=== PATIENT | male | born 1950 | race Caucasian/White ===

== ENCOUNTER 2017-12-17 05:33 | Outpatient (CLI) | payer MEDICARE ==
[~2017-12-17] VITALS: Ht 167.6 cm; Wt 53.1 kg
[2017-12-17] MEDS ORDERED: AMLO5TAB2 PO (10:09)
[2017-12-17] MEDS ORDERED: LOSA100T28 PO (10:09)
[2017-12-17] MEDS ORDERED: ASPI-586 PO (10:09)
[2017-12-18] MEDS ORDERED: DOCU-143 PO (13:11)
[2017-12-18] MEDS ORDERED: ACHD5005 PO (13:11)
== END 2017-12-17 10:38 ==
LOC: PREOP 05:33
PROVIDERS: ATTEND Surgery
DX: Z01.818 Encounter for other preprocedural examination (principal); K40.90 Unilateral inguinal hernia, without obstruction or gangrene, not specified as recurrent

== ENCOUNTER 2017-12-18 10:40 | Day surgery (SDC) | payer MEDICARE, OTHER ==
[~2017-12-18] VITALS: Ht 167.6 cm; Wt 53.1 kg
[~2017-12-18 10:40] MED LIST: AMLO5TAB2 PO; ASPI-586 PO; LOSA100T28 PO
[2017-12-18] MEDS ORDERED: CLINDAMYCIN 600 MG/50 ML IVPB 50 ML IV ONE ×3 (11:00→12:30)
[2017-12-18] MEDS ORDERED: CATHETER FLUSH 10 ML SYR IV PRN ×2 (11:00→12:30)
[2017-12-18] MEDS ORDERED: MIDAZOLAM 2 MG/2 ML (VERSED) VIAL ONE ×2 (11:20→12:14)
[2017-12-18 11:30] VITALS: BP 164/87
[2017-12-18] MEDS ORDERED: LIDOCAINE 1% INJ 20 ML (XYLOCAINE) VIAL ONE (12:04)
[2017-12-18] MEDS ORDERED: BUPIVACAINE 0.5% 30 ML (SENSORCAINE) VIAL ONE (12:05)
[2017-12-18] MEDS ORDERED: LIDOCAINE PF 2% 5 ML (XYLOCAINE) VIAL ONE (12:13)
[2017-12-18] MEDS ORDERED: LACTATED RINGERS 1,000 ML IV ONE (12:13)
[2017-12-18] MEDS ORDERED: ONDANSETRON 4 MG/2 ML (SDV) Z0FRAN ONE (12:13)
[2017-12-18] MEDS ORDERED: DEXAMETHASONE 10 MG/ML (DECADRON) 1 ML VIAL ONE (12:13)
[2017-12-18] MEDS ORDERED: SEVOFLURANE (ULTANE) 15 ML INHAL SOLN ONE ×2 (12:13→13:03)
[2017-12-18] MEDS ORDERED: proPOfol 200 MG/20 ML (DIPRIVAN) VIAL IV ONE (12:13)
[2017-12-18] MEDS ORDERED: fentaNYL INJECTION 100 MCG/2 ML AMP ONE (12:14)
--- NOTE | 2017-12-18 13:08 | Progress Note-Pre Operative ---
Pre-Operative Progress Note H&P Reviewed The H&P was reviewed, patient examined and no changes noted. Date Seen by Provider: Dec 18, 2017 Time Seen by Provider: 11:51 Date H&P Reviewed: Dec 18, 2017 Time H&P Reviewed: 11:51 Pre-Operative Diagnosis: left inguinal hernia YENI HUERTA DO Dec 18, 2017 13:08
--- NOTE | 2017-12-18 13:09 | Progress Note-Post Operative ---
Post-Operative Progess Note Surgeon (s)/Sulfuric Acid Plant Operator (s) Surgeon YENI HUERTA DO Sulfuric Acid Plant Operator: Dr. Bond Pre-Operative Diagnosis left inguinal hernia Post-Operative Diagnosis same Procedure & Operative Findings Date of Procedure 12/18/17 Procedure Performed/Findings left inguinal hernia indirect and direct defect Anesthesia Type general Estimated Blood Loss Estimated blood loss (mL): min Specimens/Packing Specimens Removed hernia sac YENI HUERTA DO Dec 18, 2017 13:09
[2017-12-18] MEDS ORDERED: DOCU-143 PO (13:11)
[2017-12-18] MEDS ORDERED: ACHD5005 PO (13:11)
--- NOTE | 2017-12-18 13:14 | Discharge Inst-Simple/Standard ---
Discharge Inst-Standard Discharge Medications New, Converted or Re-Newed RX: RX on Chart Patient Instructions/Follow Up Plan of Care/Instructions/FU: 2-3 weeks Christofer Activity as Tolerated: No Discharge Diet: Regular Diet Other Inst to Patient Follow up Appt: Make appointment for 2-3 weeks. Instructions: No lifting greater than 10 pounds. No strenuous activity. May shower in 24 hours, no tub bath or soaking. Use incentive spirometer at home as directed. No Smoking Skin/Wound Care: You have special glue over incision it will fall off on its own. Symptoms to Report: Appetite Changes, Extremity Discoloration, Numbness/Tingling, Swelling Increased , Bleeding Excessive, Eyesight Changes, Pain Increased, Urine Color Change, Constipation(Persistent), Fever over 101 degree F, Pain/Pressure in chest, Urinating Difficulty, Cough Up/Vomit Blood, Heart Beat Irreg/Pounding, Pain/ Pressure in jaw, Vaginal Bleeding Increase, Cramps in feet or legs, Lightheadedness, Pain/Pressure in shoulder, Diarrhea(Persistent), Memory Changes Suddenly, Questions/Concerns, Weight gain consecutive days, Dizziness/ Fainting, Nausea/Vomiting, Shortness of Breath, Weight gain over 2 pounds If questions or concerns contact your physician Or seek help at emergency department. YENI HUERTA DO Dec 18, 2017 13:14
[2017-12-18] MEDS ORDERED: HYDROcodone/APAP 5 MG/325 MG (LORTAB) TAB PO PRN (13:15)
[2017-12-18] MEDS ORDERED: morphine INJ 10 MG/ML 1ML (SYR OR VIAL) IVP PRN (13:30)
[2017-12-18] MEDS ORDERED: ONDANSETRON 4 MG/2 ML (SDV) Z0FRAN IVP PRN (13:30)
--- NOTE | 2017-12-18 14:18 | Anesthesia-General Post-Op ---
General Patient Condition Mental Status/LOC: Same as Preop Cardiovascular: Satisfactory Nausea/Vomiting: Absent Respiratory: Satisfactory Pain: Controlled Complications: Absent Post Op Complications Complications None Follow Up Care/Instructions Patient Instructions None needed. Anesthesia/Patient Condition Patient Condition Patient is doing well, no complaints, stable vital signs, no apparent adverse anesthesia problems. No complications reported per nursing. D/C home per [facility] Criteria: Yes ANDREAS ARMIJO CRNA Dec 18, 2017 14:18
[2017-12-18 14:20] VITALS: BP 144/82
[2017-12-18 14:55] VITALS: BP 148/71
[2017-12-18] MEDS ORDERED: HYDROcodone/APAP 5 MG/325 MG (LORTAB) TAB ONE (15:17)
[2017-12-18 15:25] VITALS: BP 152/81
[2017-12-18] MEDS ORDERED: MIDAZOLAM 2 MG/2 ML (VERSED) VIAL IV ONE (15:45)
[2017-12-18] MEDS ORDERED: LACTATED RINGERS 1,000 ML IV PRN (15:45)
[2017-12-18 16:30] VITALS: BP 152/81
--- NOTE | 2017-12-18 19:45 | OPERATIVE REPORT ---
DATE OF SERVICE: 12/18/2017 PREOPERATIVE DIAGNOSIS: Left inguinal hernia. POSTOPERATIVE DIAGNOSIS: Direct and indirect left inguinal hernia. PROCEDURE: Left inguinal hernia repair. SURGEON: Yeni Beaulieu DO. DIGITAL COURT REPORTER: Dr. Bond, assisted in retraction, dissection and closure. ESTIMATED BLOOD LOSS: Minimal. COMPLICATIONS: None. INDICATIONS: The patient is a 67-year-old male who has hernia over the last couple of weeks increasing in pain and discomfort and noticing a bulge. He understands risks and benefits of procedure and wished to proceed with procedure. Consent was signed on the chart. DESCRIPTION OF PROCEDURE: The patient was taken to the operating suite, was prepped and draped in sterile fashion. Surgical pause was performed. Local anesthetic was infiltrated into the area. An incision was made in the left lower quadrant. Dissection was taken down to the external oblique which was then opened down to the external ring. The spermatic cord was then dissected around and a Pomona drain was placed around it. has small direct hernia along with an indirect hernia. The hernia sac was then dissected off of the spermatic cord, opened. There were no contents within it and then ligated with a 2-0 Vicryl. The floor defect was then closed using 2-0 Vicryl in a [id number] fashion. The Parietex ProGrip mesh was then cut to size and then secured to Juan Manuel's ligament with a 2-0 Vicryl. This was then placed around the spermatic cord and placed under the external oblique with adequate coverage. The wound was then irrigated with copious amounts of irrigation. The Pomona drain was removed. The external oblique was then closed using 3-0 Vicryl in a running subcuticular fashion. The subcutaneous tissues were then reapproximated using 3-0 Vicryl. Skin was then closed using 4-0 Vicryl in a running subcuticular fashion. The area was then washed and dried. SwiftSet was then placed over the incision. The patient tolerated the procedure well without any complications. He was taken to recovery room in stable condition. Job ID: [id number] DocumentID: [id number] Dictated Date: 12/18/2017 14:14:39 Hypoid Gear Generator Date: 12/18/2017 19:45:12 Dictated By: YENI BEAULIEU DO
== END 2017-12-18 16:30 | disposition home or self-care (01) ==
LOC: SDC 10:40
PROVIDERS: ATTEND Surgery
DX: K40.90 Unilateral inguinal hernia, without obstruction or gangrene, not specified as recurrent (principal); I10 Essential (primary) hypertension; F17.210 Nicotine dependence, cigarettes, uncomplicated; Z79.82 Long term (current) use of aspirin; Z79.899 Other long term (current) drug therapy
CPT/HCPCS: 87081; 94664

== ENCOUNTER → 2018-04-13 | Outpatient (CLI) | payer MEDICARE ==
[~2018-04-13] MED LIST changes: +ACHD5005 PO; +DOCU-143 PO
--- NOTE | 2018-04-13 15:16 | Diagnostic Imaging Report ---
INDICATION: Hip pain. Fall. COMPARISON: None. FINDINGS: Two views of the left hip are obtained. No acute fracture, malalignment or osseous destructive process is seen. Joint spaces preserved. Femoral head appears smooth and round. IMPRESSION: No acute abnormalities demonstrated. Dictated by: Dictated on workstation # [id number]
== END ==
LOC: RAD 14:04
PROVIDERS: ATTEND Family Medicine
DX: M25.552 Pain in left hip (principal); W10.8XXA Fall (on) (from) other stairs and steps, initial encounter
CPT/HCPCS: 73502

== ENCOUNTER → 2022-09-16 | Outpatient (CLI) | payer MEDICARE ==
[~2022-09-16] VITALS: Ht 167 cm; Wt 56.8 kg
[~2022-09-16] MED LIST changes: +AMLO-250 PO; -AMLO5TAB2 PO; -LOSA100T28 PO; +LOSA100T57 PO
== END ==
LOC: PREOP 15:48
PROVIDERS: ATTEND Urology
DX: Z01.818 Encounter for other preprocedural examination (principal); N42.9 Disorder of prostate, unspecified

== ENCOUNTER 2022-09-17 06:19 | Day surgery (SDC) | payer MEDICARE ==
[2022-09-17] VITALS (9 sets, daily range): BP systolic 93–142; BP diastolic 44–80
[~2022-09-17] VITALS: Ht 167 cm; Wt 56.8 kg
[2022-09-17] MEDS ORDERED: cefTRIAXone 1 GM PRE-MIX 50 ML IV ONE (06:45)
[2022-09-17] MEDS ORDERED: LACTATED RINGERS 1,000 ML IV PRN (07:00)
[2022-09-17] MEDS ORDERED: CATHETER FLUSH 10 ML SYR IVP PRN (07:15)
--- NOTE | 2022-09-17 07:16 | Progress Note-Pre Operative ---
Pre-Operative Progress Note Date of Available H&P: Sep 17, 2022 Date H&P Reviewed: Sep 17, 2022 Time H&P Reviewed: 07:15 Changes from last HP NONE Pre-Operative Diagnosis: ABNORMAL PROSTATE WITH ELEVATED PSA CHANTE NIELSON MD Sep 17, 2022 07:15
--- NOTE | 2022-09-17 07:40 | Progress Note-Post Operative ---
Post-Operative Progess Note Surgeon (s)/Tetryl Boiling Tub Operator (s) Surgeon CHANTE NIELSON MD Tetryl Boiling Tub Operator: NONE Pre-Operative Diagnosis ABNORMAL PROSTATE WITH ELEVATED PSA Post-Operative Diagnosis SAME Procedure & Operative Findings Date of Procedure 09/17/22 Procedure Performed/Findings TRANSRECTAL NEEDLE BIOPSY PROSTATE Anesthesia Type GENERAL Estimated Blood Loss Estimated blood loss (mL): NEGLIGIBLE Specimens/Packing Specimens Removed PROSTATE BIOPSIES RT AND LT Packing: NONE CHANTE NIELSON MD Sep 17, 2022 07:40
--- NOTE | 2022-09-17 07:45 | Discharge Inst-Urology ---
Discharge Inst-Urology Reconcile Patient Problems Problems Reviewed?: Yes Final Diagnosis POSSIBLE CA PROSTATE Patient Instructions/Follow Up Plan/Assessment/Instructions Please make appointment to been seen in office in 1 week Take the Levaquin pill he has at home tomorrow am Rest for 48 hours In 72 hours, if no bleeding, may resume ASA Increase oral fluids for 48 hours and then as needed. Diet as tolerated. If questions or concerns contact your physician Or seek help at emergency department. CHANTE NIELSON MD Sep 17, 2022 07:45
[2022-09-17] MEDS ORDERED: proPOfol 200 MG/20 ML (DIPRIVAN) VIAL IV ONE (08:20)
[2022-09-17] MEDS ORDERED: LIDOCAINE PF 2% 5 ML (XYLOCAINE) VIAL ONE (08:20)
[2022-09-17] MEDS ORDERED: fentaNYL INJ 100 MCG/2 ML AMP ONE (08:20)
[2022-09-17] MEDS ORDERED: MIDAZOLAM 2 MG/2 ML (VERSED) VIAL ONE (08:20)
[2022-09-17] MEDS ORDERED: SEVOFLURANE (ULTANE) 15 ML INHAL SOLN ONE (09:01)
--- NOTE | 2022-09-17 09:25 | Anesthesia-General Post-Op ---
General Patient Condition Mental Status/LOC: Same as Preop Cardiovascular: Satisfactory Nausea/Vomiting: Absent Respiratory: Satisfactory Pain: Controlled Complications: Absent Post Op Complications Complications None Follow Up Care/Instructions Patient Instructions None needed. Anesthesia/Patient Condition Patient Condition Patient is doing well, no complaints, stable vital signs, no apparent adverse anesthesia problems. No complications reported per nursing. THEODORE DUNBAR CRNA Sep 17, 2022 09:25
[2022-09-17] MEDS ORDERED: fentaNYL INJ 100 MCG/2 ML AMP IVP ONE (09:30)
[2022-09-17] MEDS ORDERED: ONDANSETRON 4 MG/2 ML (SDV) Z0FRAN IVP PRN (09:30)
--- NOTE | 2022-09-17 20:51 | OPERATIVE REPORT ---
DATE OF SERVICE: 09/17/2022 PREOPERATIVE DIAGNOSIS: Abnormal rectal exam prostate and elevated PSA, possible CA. POSTOPERATIVE DIAGNOSIS: Abnormal rectal exam prostate and elevated PSA, possible CA. OPERATION PERFORMED: Transrectal needle biopsies of the prostate. SURGEON: All Nielson MD ANESTHESIA: General. COMPLICATIONS: None. DESCRIPTION OF PROCEDURE: Under satisfactory general anesthesia with the patient in lithotomy position, genitalia were prepped and draped in the usual sterile fashion. Using the Bard biopsy gun, I obtained six biopsies of the prostate, three from the right side mostly from the hard areas as well as the left side. There was no bleeding. The patient tolerated the procedure and anesthesia well, and was sent to recovery room in stable condition. Job ID: [id number] DocumentID: [id number] Dictated Date: 09/17/2022 10:26:54 Incident Response Specialist Date: 09/17/2022 20:49:00 Dictated By: ALL NIELSON MD
== END 2022-09-17 10:50 | disposition home or self-care (01) ==
LOC: SDC 06:19
PROVIDERS: ATTEND Urology
DX: C61 Malignant neoplasm of prostate (principal); F17.210 Nicotine dependence, cigarettes, uncomplicated
CPT/HCPCS: 87081; 88305; 88344

== ENCOUNTER → 2022-09-23 | Outpatient (CLI) | payer MEDICARE ==
--- NOTE | 2022-09-23 19:46 | Diagnostic Imaging Report ---
PROCEDURE: CT abdomen and pelvis without contrast. TECHNIQUE: Multiple contiguous axial images were obtained through the abdomen and pelvis without the use of intravenous contrast. Auto Exposure Controls were utilized during the CT exam to meet ALARA standards for radiation dose reduction. INDICATION: 72-year-old male with prostate cancer and previous right inguinal hernia repair. COMPARISONS: None available at the time of dictation. FINDINGS: The lung bases show COPD with some emphysematous changes. Cardiac contour is normal. Coronary calcifications are seen. Liver shows multiple simple appearing cysts. There is an indeterminate low density cystic type lesion along the inferior margin of segment 6 of the right lobe of the liver. This measures approximately 1.5 cm. The remainder of the cysts in both the left and right lobes appear to be simple in origin. Gallbladder shows no evidence of radiopaque stones, sludge, wall thickening or pericholecystic fluid. The spleen is normal. The GE junction, stomach and duodenal sweep are unremarkable. The pancreas shows sharp margins. Adrenals are normal. The kidneys show some nonspecific minimal bilateral perinephric stranding, right more so than left. There is a 3.7 cm capsular cyst in the left kidney. There is no hydronephrosis or hydroureter. Both ureters are seen intermittently through their course and appear unremarkable. Lack of contrast and paucity of mesenteric fat does limit assessment. Filled bladder is unremarkable. Nonopacified loops of small bowel show some fluid-filled loops with no significant distention. Large bowel contains fecal material and gas. Sigmoid diverticulosis but no definite evidence of acute diverticulitis. There is no free air, free fluid or adenopathy. There is extensive nonaneurysmal calcifications extending to the iliac and femoral arteries. Bone windows show some age-appropriate degenerative changes of the lumbosacral spine. There is vacuum disc at L5-S1. There is some scalloping of the neuroforamen at S2 possibly sequela of a perineural cyst/Tarlov cyst. No lytic or blastic changes are seen. IMPRESSION: 1. Indeterminate low density/cystic lesion in the medial portion of segment 6 of the right lobe of the liver measuring approximately 1.5 cm. Correlation with a three-phase CT of the abdomen would be of further value. Additional more benign-appearing low-density lesions are most likely cysts. Once again, correlation with a postcontrast CT and/or ultrasound or MRI may be of further value. 2. Indeterminant capsular cyst of the left kidney measuring approximately 3.7 cm. 3. Minimal bilateral perinephric stranding, right greater than left. This may be physiologic however an element of mild pyelonephritis cannot be excluded. 4. No evidence of cholecystitis, appendicitis or obstructive uropathy. No areas of peritoneal inflammation seen. 5. Sigmoid diverticulosis but no evidence of acute diverticulitis. 6. No lytic or blastic changes are seen. There is however some scalloping of the neuroforamen at S2, possibly associated with perineural cyst versus a Tarlov cyst. Dictated by: Dictated on workstation # [id number]
== END ==
LOC: RAD 16:45
PROVIDERS: ATTEND Urology
DX: C61 Malignant neoplasm of prostate (principal); K57.30 Diverticulosis of large intestine without perforation or abscess without bleeding; Z98.890 Other specified postprocedural states
CPT/HCPCS: 74176

== ENCOUNTER → 2022-09-25 | Outpatient (CLI) | payer MEDICARE ==
[~2022-09-25] MED LIST changes: +CATHETER FLUSH 10 ML SYR IVP PRN
--- NOTE | 2022-09-25 19:04 | Diagnostic Imaging Report ---
INDICATION: Prostate cancer. TECHNIQUE: Patient received 27.4 mCi Tc 99 MDP intravenously. After 3 hours, whole-body planar imaging performed. COMPARISON: No prior. FINDINGS: Physiologic uptake of radiopharmacy throughout the axial and appendicular skeleton, aside from some mild degenerative patterns in the shoulders. No suspicious accumulation of soft tissue uptake and excretion by urinary tracts noted appearing normal. IMPRESSION: Negative whole-body bone scan. No suspicious sonographic finding. Dictated by: Dictated on workstation # [id number]
== END ==
LOC: CARD 11:07
PROVIDERS: ATTEND Urology
DX: C61 Malignant neoplasm of prostate (principal)
CPT/HCPCS: 78306; A9503

== ENCOUNTER → 2022-10-22 | Outpatient (CLI) | payer MEDICARE ==
[~2022-10-22] MED LIST changes: -CATHETER FLUSH 10 ML SYR IVP PRN
--- NOTE | 2022-10-22 09:28 | Diagnostic Imaging Report ---
EXAMINATION: US Abdomen limited. TECHNIQUE: Multiple real-time grayscale images were obtained over the right upper quadrant in various projections. HISTORY: LIVER DISEASE COMPARISON: 09/23/2022 FINDINGS: Pancreas: The visualized portions of the pancreas are normal. Liver: The liver is normal in echogenicity and contour. There are multiple hepatic cysts measuring up to 2.8 cm which have a unilocular anechoic appearance. The portal vein is patent with hepatopetal flow. Gallbladder and biliary tree: Gallbladder is normal without wall thickening, pericholecystic fluid, or sonographic Al sign. There is no biliary ductal dilation. The common duct measures 0.5 cm. Right kidney: The right kidney is normal without hydronephrosis. Aorta and IVC: The visualized aorta and inferior vena cava are normal. Fluid: No ascites is seen. IMPRESSION: 1. Simple appearing hepatic cysts measuring up to 2.8 cm. 2. Otherwise unremarkable abdominal ultrasound. Dictated by: Dictated on workstation # [id number]
== END ==
LOC: RAD 07:44
PROVIDERS: ATTEND Internal Medicine Hematology & Oncology
DX: K76.89 Other specified diseases of liver (principal)
CPT/HCPCS: 76705

== ENCOUNTER 2022-10-25 08:30 | Outpatient (RCR) | payer MEDICARE ==
[~2022-10-25 08:30] MED LIST changes: +LEUPROLIDE 22.5 MG SYRINGE (ELIGARD) SQ SCH
== END 2022-11-05 | disposition home or self-care (01) ==
LOC: ONC 08:30
PROVIDERS: ATTEND Internal Medicine Hematology & Oncology
DX: C61 Malignant neoplasm of prostate (principal); I10 Essential (primary) hypertension
CPT/HCPCS: 99204; 99205

== ENCOUNTER 2022-12-11 08:45 | Outpatient (RCR) | payer MEDICARE ==
[~2022-12-11 08:45] MED LIST changes: -LEUPROLIDE 22.5 MG SYRINGE (ELIGARD) SQ SCH
[2022-12-11 09:07] LABS: BASOPHILS # (AUTO) 0.1 10^3/uL (0.0-0.1); BASOPHILS % (AUTO) 1 % (0-10); EOSINOPHILS # (AUTO) 0.4 10^3/uL (0.0-0.3); EOSINOPHILS % (AUTO) 5 % (0-10); HEMATOCRIT 39 % (40-54); HEMOGLOBIN 13.6 g/dL (13.3-17.7); LYMPHOCYTES # (AUTO) 3.2 10^3/uL (1.0-4.0); LYMPHOCYTES % (AUTO) 40 % (12-44); MEAN CORPUSCULAR HEMOGLOBIN 31 pg (25-34); MEAN CORPUSCULAR HGB CONC 35 g/dL (32-36); MEAN CORPUSCULAR VOLUME 88 fL (80-99); MEAN PLATELET VOLUME 9.1 fL (9.0-12.2); MONOCYTES # (AUTO) 0.7 10^3/uL (0.0-1.0); MONOCYTES % (AUTO) 9 % (0-12); NEUTROPHILS # (AUTO) 3.6 10^3/uL (1.8-7.8); NEUTROPHILS % (AUTO) 45 % (42-75); PLATELET COUNT 309 10^3/uL (130-400); WHITE BLOOD COUNT 7.9 10^3/uL (4.3-11.0)
[2022-12-11 09:26] LABS: ALBUMIN 4.1 GM/DL (3.2-4.5); BILIRUBIN,TOTAL 0.4 MG/DL (0.1-1.0); CALCIUM 9.2 MG/DL (8.5-10.1); CREATININE SERUM 0.73 MG/DL (0.60-1.30); POTASSIUM 4.1 MMOL/L (3.6-5.0); TOTAL PROTEIN 6.6 GM/DL (6.4-8.2)
== END 2023-01-03 | disposition home or self-care (01) ==
LOC: ONC 08:45
PROVIDERS: ATTEND Internal Medicine Hematology & Oncology
DX: C61 Malignant neoplasm of prostate (principal); I10 Essential (primary) hypertension
CPT/HCPCS: 36415; 80053; 84153; 85025

== ENCOUNTER 2023-01-15 08:38 | Outpatient (RCR) | payer MEDICARE ==
[~2023-01-15 08:38] MED LIST changes: +LEUPROLIDE 22.5 MG SYRINGE (ELIGARD) SQ SCH
[2023-01-21] MEDS ORDERED: ASPI-999 PO (09:16)
[2023-01-21] MEDS ORDERED: CLOP75TA28 PO (12:53)
[2023-01-21] MEDS ORDERED: ATOR80TA76 PO (12:53)
[2023-01-21] MEDS ORDERED: NICO-587 TD (12:54)
== END 2023-02-02 | disposition home or self-care (01) ==
LOC: ONC 08:38
PROVIDERS: ATTEND Internal Medicine Hematology & Oncology
DX: Z51.11 Encounter for antineoplastic chemotherapy (principal); C61 Malignant neoplasm of prostate; I10 Essential (primary) hypertension
CPT/HCPCS: 96402

== ENCOUNTER 2023-01-20 12:24 | Observation (INO) | payer MEDICARE ==
[~2023-01-20] VITALS: Ht 167.7 cm; Wt 45.6 kg
[~2023-01-20 12:24] MED LIST changes: -LEUPROLIDE 22.5 MG SYRINGE (ELIGARD) SQ SCH
[2023-01-20 13:46] LABS: BASOPHILS % (AUTO) 1 % (0-10); EOSINOPHILS # (AUTO) 0.1 10^3/uL (0.0-0.3); EOSINOPHILS % (AUTO) 2 % (0-10); HEMATOCRIT 39 % (40-54); HEMOGLOBIN 13.6 g/dL (13.3-17.7); LYMPHOCYTES # (AUTO) 2.9 10^3/uL (1.0-4.0); LYMPHOCYTES % (AUTO) 35 % (12-44); MEAN CORPUSCULAR HEMOGLOBIN 31 pg (25-34); MEAN CORPUSCULAR HGB CONC 35 g/dL (32-36); MEAN CORPUSCULAR VOLUME 89 fL (80-99); MONOCYTES # (AUTO) 0.7 10^3/uL (0.0-1.0); MONOCYTES % (AUTO) 8 % (0-12); NEUTROPHILS # (AUTO) 4.5 10^3/uL (1.8-7.8); NEUTROPHILS % (AUTO) 55 % (42-75); PLATELET COUNT 306 10^3/uL (130-400); WHITE BLOOD COUNT 8.2 10^3/uL (4.3-11.0)
[2023-01-20 13:52] LABS: ALBUMIN 4.3 GM/DL (3.2-4.5); CHLORIDE 106 MMOL/L (98-107); POTASSIUM 3.9 MMOL/L (3.6-5.0); SODIUM 139 MMOL/L (135-145)
[2023-01-20 13:54] LABS: CALCIUM 9.2 MG/DL (8.5-10.1)
[2023-01-20 13:55] LABS: GLUCOSE 100 MG/DL (70-105); TOTAL PROTEIN 6.9 GM/DL (6.4-8.2)
[2023-01-20 13:56] LABS: CARBON DIOXIDE 23 MMOL/L (21-32)
[2023-01-20 13:57] LABS: BILIRUBIN,TOTAL 0.5 MG/DL (0.1-1.0)
[2023-01-20 13:58] LABS: ALKALINE PHOSPHATASE 71 U/L (40-136); CREATININE SERUM 0.71 MG/DL (0.60-1.30); GFR ESTIMATED 98
[2023-01-20 14:00] LABS: BUN/CREATININE RATIO 14
[2023-01-20] MEDS ORDERED: IOHEXOL 350 MG/ML 100 ML (OMNIPAQUE 350) VIAL IV ONE (14:00)
[2023-01-20] MEDS ORDERED: NS 100 ML (IVPB) BAG IV ONE (14:00)
[2023-01-20 14:01] LABS: ALANINE AMINOTRANSFERASE 17 U/L (0-55)
[2023-01-20 14:03] LABS: INR 0.9 (0.8-1.4); PARTIAL THROMBOPLASTIN TIME 32 SEC (24-35); PROTHROMBIN TIME PATIENT 12.4 SEC (12.2-14.7)
--- NOTE | 2023-01-20 14:03 | Diagnostic Imaging Report ---
INDICATION: Fever and confusion. COMPARISON: None. FINDINGS: Single frontal view of the chest demonstrates normal heart size and pulmonary vascularity. The lungs are well aerated and clear. No large pleural effusion or pneumothorax is seen. The visualized osseous structures show no acute abnormalities. IMPRESSION: No acute cardiopulmonary process. Dictated by: Dictated on workstation # [id number]
[2023-01-20 14:04] LABS: FIBRIN DEGRADATION PRODUCTS < 0.27 UG/ML (0.00-0.49)
--- NOTE | 2023-01-20 14:04 | Diagnostic Imaging Report ---
PROCEDURE: CT head w/o r/o stroke. TECHNIQUE: Multiple contiguous axial images were obtained through the brain without the use of intravenous contrast. Auto Exposure Controls were utilized during the CT exam to meet ALARA standards for radiation dose reduction. INDICATION: Confusion and right-sided weakness. COMPARISON: No prior studies are available for comparison. FINDINGS: The ventricles and sulci are within normal limits. There appears to be an area of encephalomalacia in the white matter of the right posterior parietal lobe, consistent with prior infarct. There is no sulcal effacement or midline shift. No acute intra-axial or extra-axial hemorrhage is identified. There are areas of periventricular low attenuation, consistent with chronic microvascular ischemia. Cisterns are patent. Visualized paranasal sinuses show some mucosal thickening of the ethmoid air cells and the sphenoid sinus as well as the left maxillary sinus. IMPRESSION: Chronic changes. No acute intracranial process is detected. Results were discussed with Dr. Morales at 200 p.m. Dictated by: Dictated on workstation # [id number]
--- NOTE | 2023-01-20 14:09 | ED Neurological Problem ---
General Chief Complaint: Neurological Problems Stated Complaint: CONFUSION| WEAKNESS WALKING Nursing Triage Note: PT AMB TO RM 2 WITH WITH C/O UNABLE TO COMPLETE TASKS THIS AM. PT STATE HE WAS TRYING TO TYPE ON HIS COMPUTER BUT COULDNT GET HIS FINGERS TO TYPE NORMAL. PT ALSO HAD A MEHTA THIS AM BUT DENIES PAIN NOW. PTS STATES HE HAD A UMANZOR OF FEELING SAD TODAY BUT THAT FEELING IS GONE NOW Source: patient, family () Exam Limitations: no limitations History of Present Illness Date Seen by Provider: Jan 20, 2023 Time Seen by Provider: 13:00 Initial Comments Patient is a 72-year-old male with a history of hypertension and prostate cancer who presents to the emergency room with his with difficulties with comprehension and ability to perform tasks. 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 He talked to his who helped him out and the episode continued. He denies any unilateral weakness, numbness or tingling. He states he has been very emotional over the course of the last few hours. He sat at home until his came home and she brought him to the emergency room. No chest pain or shortness of breath. He had a mild headache that spontaneously resolved earlier in the morning. No vision issues. No nausea or vomiting. No recent illnesses. He has started prostate cancer medications within the last month, his last "injection" was last week. He denies problems with balance or coordination. He is a smoker. Has never had cardiac evaluation. Has never had a known TIA or stroke. Feels almost back to normal currently. NIH would be 0 at presentation. Timing/Duration: 4-6 hours Severity: moderate Associated Symptoms: confusion; No loss of consciousness, No numbness in legs/feet, No slurred speech, No tingling in legs/feet, No trouble walking, No vision changes Allergies and Home Medications Allergies Coded Allergies: Penicillins (Verified Allergy, Mild, HIVES, 12/17/17) Patient Home Medication List Home Medication List Reviewed: Yes Aspirin (Aspirin) 81 Mg Tab.chew, 81 MG PO DAILY Prescribed by: SUJATA SANCHEZ on 01/21/23 0916 Atorvastatin Calcium (Atorvastatin Calcium) 80 Mg Tablet, 80 MG PO DAILY Prescribed by: SUJATA SANCHEZ on 01/21/23 1253 Clopidogrel Bisulfate (Clopidogrel) 75 Mg Tablet, 75 MG PO DAILY Prescribed by: SUJATA SANCHEZ on 01/21/23 1253 Losartan Potassium (Losartan Potassium) 100 Mg Tablet, 100 MG PO DAILY, (Reported) Entered as Reported by: JAYLA ANGEL on 12/17/17 1009 Nicotine (Nicotine Patch) 14 Mg/24 Hour Patch.td24, 14 MG TD DAILY Prescribed by: SJUATA SANCHEZ on 01/21/23 1254 Discontinued Medications Amlodipine Besylate (Amlodipine Besylate) 5 Mg Tablet, 5 MG PO DAILY, (Reported) Entered as Reported by: JAYLA ANGEL on 12/17/17 1009 Review of Systems Review of Systems Constitutional: see HPI Eyes: No Symptoms Reported Ears, Nose, Mouth, Throat: no symptoms reported Respiratory: no symptoms reported Cardiovascular: no symptoms reported Gastrointestinal: no symptoms reported Genitourinary: no symptoms reported Musculoskeletal: no symptoms reported Skin: no symptoms reported Psychiatric/Neurological: Headache, Other (Difficulty with mental processing) Past Hpjyoaa-Ylalvx-Wjvtnw Hx Patient Social History Tobacco Use?: Yes Tobacco type used: Cigarettes Substance use?: No Alcohol Use?: Yes Alcohol type: Beer Alcohol Frequency: Once in a while Pt feels they are or have been: No Immunizations Up To Date Influenza Vaccine Up-to-Date: No; Not Current First/Initial COVID19 Vaccinat: YES Second COVID19 Vaccination Stas: YES COVID19 Vaccine Irrigator Gravity Flow: JULIETH Seasonal Allergies Seasonal Allergies: No Past Medical History Surgery/Hospitalization HX: PROSTATE CANCER, HTN HERNIA SURGERY Surgeries: Yes (HERNIA) Respiratory: No Currently Using CPAP: No Currently Using BIPAP: No Cardiac: Yes Hypertension Neurological: No Reproductive Disorders: No Sexually Transmitted Disease: No HIV/AIDS: No Genitourinary: No Gastrointestinal: Yes (INGUINAL HERNIA) Musculoskeletal: No Endocrine: No HEENT: No Loss of Vision: Bilateral Hearing Impairment: Hard of Hearing, Bilateral Hearing Aide Cancer: No Psychosocial: No Integumentary: No Blood Disorders: No Adverse Reaction/Blood Tranf: No (N/A) Physical Exam Vital Signs Vital Signs - First Documented 01/20/23 01/20/23 12:40 16:21 Temp 36.8 Pulse 84 Resp 20 B/P (MAP) 160/82 (108) Pulse Ox 100 O2 Delivery Room Air Capillary Refill : Height, Weight, BMI Height: 5'6.00" Weight: 117lbs. 0.0oz. [id number]; 20.36 BMI Method: General Appearance: WD/WN, no apparent distress, thin HEENT: PERRL/EOMI, normal ENT inspection, pharynx normal Neck: normal inspection Respiratory: lungs clear, normal breath sounds, no respiratory distress, no accessory muscle use Cardiovascular: regular rate, rhythm Peripheral Pulses: 2+ Radial Pulses (R), 2+ Radial Pulses (L) Gastrointestinal: normal bowel sounds, non tender, soft Extremities: non-tender, normal inspection, no pedal edema, no calf tenderness Neurologic/Psychiatric: professor of literacy II-XII nml as tested, no motor/sensory deficits, alert, normal mood/affect, oriented x 3 Crainal Nerves: No abnormal eye position, No abnormal pupil position, No a bnormal speech, No tongue deviation to R, No tongue deviation to L Coordination/Gait: normal finger to nose Motor/Sensory: weak motor strength RLE, weak motor strength LLE ((known arthritis and leg weakness issues pre-existing this event)) Skin: normal color, warm/dry Stroke Onset of Symptoms Date of Onset of Symptoms: Jan 20, 2023 Time of Symptom Onset: 08:30 Onset of Symptoms: Yes Symptoms onset unknown: No NIH Stroke Scale Assessment Select: Initial Level of Consciousness: 0=Alert (0), Level of Consciousness- Questions: 0=Answers both month/age (0), LOC Commands: 0=Performs both tasks (0), Gaze: Normal (0), Visual Zhou: 0=No visual loss (0), Facial Movement (Facial Paresis): 0=Normal symmetrical mnt (0), Motor Function-Arms Right: 0=No drift (0), Motor Function-Arms Left: 0=No drift (0), Limb Ataxia: 0=Absent (0), Sensory: 0=Normal:no loss (0), Best Language: 0=No aphasia (0), Dysarthria: 0=Normal (0), Extinction & Inattention: 0=No abnormality (0), Total: 0 Stroke Thrombolytic Exclusion Improving Symptoms: Yes IV - TPa Received IV - TPa Procedure Performed?: No Progress/Results/Core Measures Results/Orders Lab Results Laboratory Tests Test 01/20/23 12:55 01/20/23 14:17 01/20/23 14:31 Range/Units White Blood Count 8.2 4.3-11.0 10^3/uL Red Blood Count 4.42 4.30-5.52 10^6/uL Hemoglobin 13.6 13.3-17.7 g/dL Hematocrit 39 L 40-54 % Mean Corpuscular Volume 89 80-99 fL Mean Corpuscular Hemoglobin 31 25-34 pg Mean Corpuscular Hemoglobin Concent 35 32-36 g/dL Red Cell Distribution Width 12.7 10.0-14.5 % Platelet Count 306 130-400 10^3/uL Mean Platelet Volume 10.0 9.0-12.2 fL Immature Granulocyte % (Auto) 0 % Neutrophils (%) (Auto) 55 42-75 % Lymphocytes (%) (Auto) 35 12-44 % Monocytes (%) (Auto) 8 0-12 % Eosinophils (%) (Auto) 2 0-10 % Basophils (%) (Auto) 1 0-10 % Neutrophils # (Auto) 4.5 1.8-7.8 10^3/uL Lymphocytes # (Auto) 2.9 1.0-4.0 10^3/uL Monocytes # (Auto) 0.7 0.0-1.0 10^3/uL Eosinophils # (Auto) 0.1 0.0-0.3 10^3/uL Basophils # (Auto) 0.0 0.0-0.1 10^3/uL Immature Granulocyte # (Auto) 0.0 0.0-0.1 10^3/uL Prothrombin Time 12.4 12.2-14.7 SEC INR Comment 0.9 0.8-1.4 Activated Partial Thromboplast Time 32 24-35 SEC D-Dimer < 0.27 0.00-0.49 UG/ML Sodium Level 139 135-145 MMOL/L Potassium Level 3.9 3.6-5.0 MMOL/L Chloride Level 106 98-107 MMOL/L Carbon Dioxide Level 23 21-32 MMOL/L Anion Gap 10 5-14 MMOL/L Blood Urea Nitrogen 10 7-18 MG/DL Creatinine 0.71 0.60-1.30 MG/DL Estimat Glomerular Filtration Rate 98 BUN/Creatinine Ratio 14 Glucose Level 100 70-105 MG/DL Calcium Level 9.2 8.5-10.1 MG/DL Corrected Calcium 9.0 8.5-10.1 MG/DL Total Bilirubin 0.5 0.1-1.0 MG/DL Aspartate Amino Transf (AST/SGOT) 16 5-34 U/L Alanine Aminotransferase (ALT/SGPT) 17 0-55 U/L Alkaline Phosphatase 71 40-136 U/L Troponin I < 0.028 <0.028 NG/ML Total Protein 6.9 6.4-8.2 GM/DL Albumin 4.3 3.2-4.5 GM/DL Glucometer 91 70-110 MG/DL Urine Color YELLOW Urine Clarity CLEAR Urine pH 7.0 5-9 Urine Specific [place] <=1.005 1.016-1.022 Urine Protein NEGATIVE NEGATIVE Urine Glucose (UA) NEGATIVE NEGATIVE Urine Ketones NEGATIVE NEGATIVE Urine Nitrite NEGATIVE NEGATIVE Urine Bilirubin NEGATIVE NEGATIVE Urine Urobilinogen 0.2 < = 1.0 MG/DL Urine Leukocyte Esterase NEGATIVE NEGATIVE Urine RBC (Auto) TRACE-I H NEGATIVE Urine RBC NONE /HPF Urine WBC NONE /HPF Urine Squamous Epithelial Cells NONE /HPF Urine Crystals NONE /LPF Urine Bacteria NEGATIVE /HPF Urine Casts NONE /LPF Urine Mucus NEGATIVE /LPF Urine Culture Indicated NO My Orders Orders - TOO MORALES MD Cbc With Automated Diff (01/20/23 13:17) Protime With Inr (01/20/23 13:17) Partial Thromboplastin Time (01/20/23 13:17) Comprehensive Metabolic Panel (01/20/23 13:17) Fibrin Degradation Products (01/20/23 13:17) Troponin I Vj (01/20/23 13:17) Ua Culture If Indicated (01/20/23 13:17) Chest 1 View, Ap/Pa Only (01/20/23 13:17) Ekg Tracing (01/20/23 13:17) Nothing By Mouth (01/20/23 Lunch) Accucheck Stat ONCE (01/20/23 13:17) Ed Iv/Invasive Line Start (01/20/23 13:17) Ed Iv/Invasive Line Start (01/20/23 13:17) Vital Signs Stroke Patient Q15M (01/20/23 13:17) Ct Head Wo-R/O Stroke (01/20/23 13:17) O2 (01/20/23 13:17) Monitor-Rhythm Ecg Trace Only (01/20/23 13:17) Dysphagia Screening Tool Q10MX1 (01/20/23 13:17) Post Thrombolytic Adminstratio (01/20/23 13:17) Lipid Panel (01/21/23 06:00) Ct Angio Head/Neck (01/20/23 13:40) Iohexol Injection (Omnipaque 350 Mg/Ml 1 (01/20/23 14:00) Ns (Ivpb) (Sodium Chloride 0.9% Ivpb Bag (01/20/23 14:00) Aspirin Chewable Tablet (Baby Aspirin Ch (01/20/23 15:15) Clopidogrel Tablet (Plavix Tablet) (01/20/23 15:15) Ed Admission (Communication) (01/20/23 16:25) Code/Resuscitation (01/20/23 16:25) Medications Given in ED Vital Signs/I&O 01/20/23 01/20/23 12:40 16:21 Temp 36.8 Pulse 84 77 Resp 20 18 B/P (MAP) 160/82 (108) 155/88 Pulse Ox 100 O2 Delivery Room Air Blood Pressure Mean: 108 Progress Progress Note : Progress Note Patient seen and evaluated by me. Evaluation today includes physical exam, CBC, Chem-12, D-dimer/coags, urinalysis. The patient also underwent chest x-ray, CT head without contrast and CTA head and cervical spine. Pertinent physical exam findings reveal thin, elderly appearing 72-year-old male who appears older than stated age in no acute distress. His heart is regular, lungs are clear with occasional scattered expiratory wheeze. Abdomen is soft. Extremities unremarkable, no edema. Neurologic exam grossly normal with no focal neurologic deficits. His speech and cognition appear to have improved since onset of symptoms around 77:30 AM. Differential diagnosis based on history and physical exam TIA versus acute cerebral vascular accident. Labs and imaging reviewed by me, CBC is normal, Chem-12 is normal, D-dimer is undetectable, coags are normal, UA shows trace red blood cells otherwise negative. Chest x-ray shows no acute abnormality. CT head without contrast demonstrates chronic small vessel disease changes. CTA head and neck demonstrat es mild carotid disease, no large vessel occlusions. Visualized portions of the upper lung zhou demonstrate COPD as well as musculoskeletal changes to the cervical spine. Patient is treated in the emergency department with aspirin and Plavix. Case is discussed with stroke neurology who recommended the aspirin and Plavix for 21 days as well as admission to further delineate risk factors and complete the stroke work-up. MRI brain recommended. Case was discussed with Dr. Sanchez, hospitalist who accepts the patient to admission cardiac stepdown unit patient and family at the bedside are comfortable with plan of care. All questions have been sought and answered Initial ECG Impression Date: Jan 20, 2023 Initial ECG Impression Time: 12:28 Initial ECG Rate: 76 Initial ECG Rhythm: Normal Sinus Initial ECG Intervals: Normal Initial ECG Impression: Normal Diagnostic Imaging Diagonstic Imaging: Xray Plain Films/CT/US/NM/MRI: chest Comments [facility] [place], [place] NAME: LAWRENCE SANCHEZ [facility] REC#: [id number] PT STATUS: REG ER : 1950 PHYSICIAN: TOO MORALES MD ADMIT DATE: 01/20/23/ER Draft Date of Exam:01/20/23 CHEST 1 VIEW, AP/PA ONLY INDICATION: Fever and confusion. COMPARISON: None. FINDINGS: Single frontal view of the chest demonstrates normal heart size and pulmonary vascularity. The lungs are well aerated and clear. No large pleural effusion or pneumothorax is seen. The visualized osseous structures show no acute abnormalities. IMPRESSION: No acute cardiopulmonary process. Dictated on workstation # [id number] Dict: 01/20/23 1400 Trans: 01/20/23 1402 [id number] Interpreted by: VERN BROWN MD Electronically signed by: Diagonstic Imaging: CT Comments [facility]. [place], [place] NAME: LAWRENCE SANCHEZ [facility] REC#: [id number] PT STATUS: REG ER : 1950 PHYSICIAN: TOO MORALES MD ADMIT DATE: 01/20/23/ER Draft Date of Exam:01/20/23 CT HEAD WO-R/O STROKE PROCEDURE: CT head w/o r/o stroke. TECHNIQUE: Multiple contiguous axial images were obtained through the brain without the use of intravenous contrast. Auto Exposure Controls were utilized during the CT exam to meet ALARA standards for radiation dose reduction. INDICATION: Confusion and right-sided weakness. COMPARISON: No prior studies are available for comparison. FINDINGS: The ventricles and sulci are within normal limits. There appears to be an area of encephalomalacia in the white matter of the right posterior parietal lobe, consistent with prior infarct. There is no sulcal effacement or midline shift. No acute intra-axial or extra-axial hemorrhage is identified. There are areas of periventricular low attenuation, consistent with chronic microvascular ischemia. Cisterns are patent. Visualized paranasal sinuses show some mucosal thickening of the ethmoid air cells and the sphenoid sinus as well as the left maxillary sinus. IMPRESSION: Chronic changes. No acute intracranial process is detected. Results were discussed with Dr. Morales at 200 p.m. Dictated on workstation # [id number] Dict: 01/20/23 1358 Trans: 01/20/23 1404 [id number] Interpreted by: JUAN F HARDEN MD Electronically signed by: Comments [facility] [place] [place] NAME: LAWRENCE SANCHEZ [facility] REC#: [id number] PT STATUS: REG ER : 1950 PHYSICIAN: TOO MORALES MD ADMIT DATE: 01/20/23/ER Draft Date of Exam:01/20/23 CT ANGIO HEAD/NECK PROCEDURE: CT angiography of the head and CT angiography of the neck with and without contrast. TECHNIQUE: Contiguous noncontrast images were obtained from the skull base through the vertex. After intravenous contrast administration, helical CT angiography of the neck was performed. Source data was reformatted into 3D MIP projections. Delayed post contrast acquisition was also obtained. Auto Exposure Controls were utilized during the CT exam to meet ALARA standards for radiation dose reduction. INDICATION: 72-year-old male with right-sided weakness with difficulty walking. COMPARISON: CT head 01/20/2023. FINDINGS: There is a type III aortic arch. Both common carotid arteries are widely patent. There is mixed plaque at the bifurcations. This results in a mild 20-30% stenosis at the origin of the left ICA and a 30-40% stenosis at the origin of the right ICA. The cervical, high cervical, and petrous segments are widely patent. There is bilateral carotid siphon disease with calcific atherosclerosis but no evidence of hemodynamically significant stenosis. The A1 and A2 segments of both BRENDA are patent. The right A1 segment is dominant. There is a patent anterior communicating artery. The M1, M2, and M3 trifurcation vessels of both MCA are unremarkable. There is no large vessel or medium vessel occlusion seen in the anterior circulation. The left vertebral artery is dominant. There is some soft plaque at the proximal left vertebral artery with an approximately 30% stenosis. This is not felt to be hemodynamically significant. There is essentially a PICA termination of the right vertebral artery. The left PICA, basilar artery, AICA, SCA, and machine dyer show contrast opacification. Similar to the anterior circulation, there is no large vessel or medium vessel occlusion seen but there is small vessel disease present. The lung apices show COPD with some minimal bullous emphysematous change. The superior mediastinum is unremarkable. The parapharyngeal and paraspinous soft tissues are also grossly normal. There is moderate cervical spondylosis with multilevel hypertrophic facet changes. IMPRESSION: 1. There is bilateral carotid bifurcation disease with mixed plaque resulting in 20-30% stenosis of the origin of the left ICA and 30-40% loss of the origin of the right ICA. These are not felt to be hemodynamically significant. 2. There is bilateral carotid siphon disease with calcific atherosclerosis but not felt to be hemodynamically significant. 3. There is no large vessel or medium vessel occlusion seen in the anterior circulation. There is distal small vessel disease. 4. There is some soft plaque in the dominant left vertebral artery. Both vertebral arteries are patent to the skull base. There is PICA termination of the right vertebral artery, a normal variation. 5. COPD. 6. There is moderate cervical spondylosis with multilevel hypertrophic facet changes. Dictated on workstation # [id number] Dict: 01/20/23 1409 Trans: 01/20/23 1439 [id number] Interpreted by: SHANKAR WEBB MD Electronically signed by: Counseling-Symptomatic: 3-10 Minutes Follow-up with PCP to: Discuss Further Options Departure Communication (Admissions) Time/Spoke to Admitting Phy: 15:[address] Sanchez (hospitalist) Time/Spoke to Consulting Phy: 15:[address] Ferreira - ROEL Stroke Neurology; baby aspirin and plavix 75mg - complete stroke work up with MRI/echo Impression Primary Impression: TIA (transient ischemic attack) Additional Impression: Hypertension Qualified Codes: I10 - Essential (primary) hypertension Disposition: ADMITTED INPATIENT Condition: Stable Admissions Decision to Admit Reason: Admit from ER (General) Decision to Admit/Date: Jan 20, 2023 Time/Decision to Admit Time: 15:16 Departure-Patient Inst. Referrals: GEORGE GEORGES MD (PCP/Family) Primary Care Physician Scripts Nicotine (Nicotine Patch) 14 Mg/24 Hour Patch.td24 14 MG TD DAILY, #30 PATCH Prov: SUJATA SANCHEZ MD 01/21/23 Atorvastatin Calcium (Atorvastatin Calcium) 80 Mg Tablet 80 MG PO DAILY, #30 TAB Prov: SUJATA SANCHEZ MD 01/21/23 Clopidogrel Bisulfate (Clopidogrel) 75 Mg Tablet 75 MG PO DAILY, #21 TAB Prov: SUJATA SANCHEZ MD 01/21/23 Aspirin (Aspirin) 81 Mg Tab.chew 81 MG PO DAILY, #30 TAB Prov: SUJATA SANCHEZ MD 01/21/23 TOO MORALES MD Jan 20, 2023 14:09
--- NOTE | 2023-01-20 14:40 | Diagnostic Imaging Report ---
PROCEDURE: CT angiography of the head and CT angiography of the neck with and without contrast. TECHNIQUE: Contiguous noncontrast images were obtained from the skull base through the vertex. After intravenous contrast administration, helical CT angiography of the neck was performed. Source data was reformatted into 3D MIP projections. Delayed post contrast acquisition was also obtained. Auto Exposure Controls were utilized during the CT exam to meet ALARA standards for radiation dose reduction. INDICATION: 72-year-old male with right-sided weakness with difficulty walking. COMPARISON: CT head 01/20/2023. FINDINGS: There is a type III aortic arch. Both common carotid arteries are widely patent. There is mixed plaque at the bifurcations. This results in a mild 20-30% stenosis at the origin of the left ICA and a 30-40% stenosis at the origin of the right ICA. The cervical, high cervical, and petrous segments are widely patent. There is bilateral carotid siphon disease with calcific atherosclerosis but no evidence of hemodynamically significant stenosis. The A1 and A2 segments of both BRENDA are patent. The right A1 segment is dominant. There is a patent anterior communicating artery. The M1, M2, and M3 trifurcation vessels of both MCA are unremarkable. There is no large vessel or medium vessel occlusion seen in the anterior circulation. The left vertebral artery is dominant. There is some soft plaque at the proximal left vertebral artery with an approximately 30% stenosis. This is not felt to be hemodynamically significant. There is essentially a PICA termination of the right vertebral artery. The left PICA, basilar artery, AICA, SCA, and otolaryngologist show contrast opacification. Similar to the anterior circulation, there is no large vessel or medium vessel occlusion seen but there is small vessel disease present. The lung apices show COPD with some minimal bullous emphysematous change. The superior mediastinum is unremarkable. The parapharyngeal and paraspinous soft tissues are also grossly normal. There is moderate cervical spondylosis with multilevel hypertrophic facet changes. IMPRESSION: 1. There is bilateral carotid bifurcation disease with mixed plaque resulting in 20-30% stenosis of the origin of the left ICA and 30-40% loss of the origin of the right ICA. These are not felt to be hemodynamically significant. 2. There is bilateral carotid siphon disease with calcific atherosclerosis but not felt to be hemodynamically significant. 3. There is no large vessel or medium vessel occlusion seen in the anterior circulation. There is distal small vessel disease. 4. There is some soft plaque in the dominant left vertebral artery. Both vertebral arteries are patent to the skull base. There is PICA termination of the right vertebral artery, a normal variation. 5. COPD. 6. There is moderate cervical spondylosis with multilevel hypertrophic facet changes. Dictated by: Dictated on workstation # [id number]
[2023-01-20 14:42] LABS: BILIRUBIN,URINE NEGATIVE (NEGATIVE); CLARITY,URINE CLEAR; COLOR,URINE YELLOW; GLUCOSE, URINE (UA) NEGATIVE (NEGATIVE); KETONES,URINE NEGATIVE (NEGATIVE); LEUKOCYTE ESTERASE ,URINE NEGATIVE (NEGATIVE); NITRITE,URINE NEGATIVE (NEGATIVE); PROTEIN,URINE NEGATIVE (NEGATIVE)
[2023-01-20 14:59] LABS: BACTERIA,URINE NEGATIVE /HPF
[2023-01-20] MEDS ORDERED: CLOPIDOGREL 75 MG (PLAVIX) TABLET PO ONE (15:15)
[2023-01-20] MEDS ORDERED: ASPIRIN 81 MG CHEW (CHILDREN'S ASA) PO ONE (15:15)
--- NOTE | 2023-01-20 16:39 | History & Physical-Hospitalist ---
History of Present Illness HPI/Chief Complaint Patient 72-year-old male with past medical history of hypertension and prostate cancer who presented to the emergency department due to concern for stroke. 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 He had called his and she thought he was just having problems with the computer but eventually came home to check on him. He seemed off to her and he describes it as being in a fog. They decided to seek evaluation in the emergency room. His also noticed that he was a little bit more weak walking in to the ER but that he does have baseline weakness due to a bad back. He had an emergent CT head and CTA head and neck were negative for acute findings. His symptoms have since resolved. His reports he is back to his baseline. It is that he has some nausea with his antihypertensives. She states he takes it and then gets nauseous about an hour afterwards but she is uncertain which one it is. Source: patient Date Seen 01/20/23 Time Seen by a Provider: 16:36 Attending Physician Farooq Gasca MD PCP Admitting Physician: Jade Sanchez MD Attending Physician: Jade Sanchez MD Referring Physician Date of Admission Jan 20, 2023 at 16:27 Home Medications & Allergies Home Medications Reviewed patient Home Medication Reconciliation performed by pharmacy medication reconciliations factory maintenance technician and/or nursing. Patients Allergies have been reviewed. Allergies Allergies Coded Allergies Penicillins (Verified Allergy, Mild, HIVES, 12/17/17) Past Xkxllqa-Prprhi-Ttzqex Hx Patient Social History Marrital Status: Tobacco Use?: Yes Tobacco type used: Cigarettes Substance use?: No Alcohol Use?: Yes Alcohol type: Beer Alcohol Frequency: Once in a while Pt feels they are or have been: No Immunizations Up To Date Date of Influenza Vaccine: Jul 21, 2022 First/Initial COVID19 Vaccinat: YES Second COVID19 Vaccination Stas: YES Tetanus Booster (TDap): Unknown Seasonal Allergies Seasonal Allergies: No Current Status Communicates: Verbally Primary Language: Yakut Preferred Spoken Language: Yakut Sensory deficits: Vision impairment Implanted or Applied Medical D: None Past Medical History Currently Using CPAP: No Currently Using BIPAP: No Hypertension Sexually Transmitted Disease: No HIV/AIDS: No Loss of Vision: Bilateral Hearing Impairment: Hard of Hearing, Bilateral Hearing Aide Blood Disorders: No Adverse Reaction/Blood Tranf: No (N/A) Review of Systems Constitutional: see HPI Physical Exam Physical Exam Vital Signs Vital Signs - First Documented 01/20/23 01/20/23 12:40 16:21 Temp 36.8 Pulse 84 Resp 20 B/P (MAP) 160/82 (108) Pulse Ox 100 O2 Delivery Room Air Capillary Refill : Height, Weight, BMI Height: 5'6.00" Weight: 117lbs. 0.0oz. 53.903574zc; 20.36 BMI Method: General Appearance: No Apparent Distress, Thin Respiratory: Lungs Clear, No Respiratory Distress Cardiovascular: Regular Rate, Rhythm, No Murmur Extremity: No Calf Tenderness, No Pedal Edema Neurologic/Psychiatric: Alert, Oriented x3, Normal Mood/Affect Results Results/Procedures Labs Laboratory Tests 01/20/23 12:55 Patient resulted labs reviewed. Imaging: Reviewed Imaging Report Assessment/Plan Admission Diagnosis TIA Admission Status: Observation Assessment and Plan TIA Symptoms now resolved CT Head negative for acute findings Will get echo in AM Telemetry MRI in AM Continue ASA/Plavix per [facility] Stroke Neurology recommendations HTN Continue home meds as able Does report nausea with one of the pills he is on Diagnosis/Problems Diagnosis/Problems (1) Hypertension Status: Acute Qualifiers: Hypertension type: primary hypertension Qualified Codes: I10 - Essential (primary) hypertension (2) TIA (transient ischemic attack) Status: Acute (3) Prostate cancer Clinical Quality Measures Stroke: Date of last known well: Jan 20, 2023 Time of last known well: 08:30 Symptoms onset unknown: No Smoking Cessation Counseling: Counseling-Symptomatic: 3-10 Minutes Discussed Options Including: Nicotine Patch JADE SANCHEZ MD Jan 20, 2023 16:39
[2023-01-20] MEDS ORDERED: MILK OF MAGNESIA 400 MG/5 ML 30 ML UDC PO PRN ×2 (17:00)
[2023-01-20] MEDS ORDERED: MELATONIN 3 MG TABLET PO PRN (17:00)
[2023-01-20] MEDS ORDERED: ANTACID SUSP 30 ML UDC (MYLANTA) PO PRN (17:00)
[2023-01-20] MEDS ORDERED: BENZONATATE 100 MG (TESSALON) CAPSULE PO PRN (17:00)
[2023-01-20] MEDS ORDERED: ONDANSETRON 4 MG/2 ML (SDV) Z0FRAN IV PRN (17:00)
[2023-01-20] MEDS ORDERED: ACETAMINOPHEN 325 MG TABLET PO PRN (17:00)
[2023-01-20 17:05] VITALS: BP 147/86
[2023-01-20] MEDS ORDERED: NICOTINE 14 MG (NICODERM) PATCH TD NR (17:15)
[2023-01-20 19:38] VITALS: BP 141/69
[2023-01-21] VITALS: BP 131/72
[2023-01-21 04:00] VITALS: BP 147/82
[2023-01-21 05:15] LABS: HEMATOCRIT 36 % (40-54); HEMOGLOBIN 12.6 g/dL (13.3-17.7); MEAN CORPUSCULAR HEMOGLOBIN 31 pg (25-34); MEAN CORPUSCULAR HGB CONC 35 g/dL (32-36); MEAN CORPUSCULAR VOLUME 89 fL (80-99); MEAN PLATELET VOLUME 9.6 fL (9.0-12.2); PLATELET COUNT 275 10^3/uL (130-400); WHITE BLOOD COUNT 7.8 10^3/uL (4.3-11.0)
[2023-01-21 07:05] LABS: ALBUMIN 3.5 GM/DL (3.2-4.5); BILIRUBIN,TOTAL 0.2 MG/DL (0.1-1.0); CALCIUM 8.8 MG/DL (8.5-10.1); CREATININE SERUM 0.72 MG/DL (0.60-1.30); POTASSIUM 3.9 MMOL/L (3.6-5.0); TOTAL PROTEIN 5.8 GM/DL (6.4-8.2)
[2023-01-21 07:46] VITALS: BP 153/84
--- NOTE | 2023-01-21 08:15 | Physical Therapy Evaluation ---
PT Evaluation-General Medical Diagnosis Admission Date Jan 20, 2023 at 16:27 Medical Diagnosis: HTN/TIA Onset Date: Jan 20, 2023 Therapy Diagnosis Therapy Diagnosis: debility Height/Weight Height (Feet): 5 Height (Inches): 6.00 Weight (Pounds): 117 Weight (Ounces): 0.0 Precautions Precautions/Isolations: Fall Prevention, Standard Precautions Referral Physician: Laura Reason for Referral: Evaluation/Treatment Medical History Pertinent Medical History: HTN, Prostate CA, Smoking Current History ER secondary to confusion/weakness Reviewed History: Yes Social History Home: Single Level Current Living Status: Spouse Prior Prior Level of Function SCALE: Activities may be completed with or without assistive devices. 0-Zgdhpeplrl-mgsmfsw completes the activity by him/herself with no assistance from a helper. 5-Set-up or Clean-up Assistance-helper sets up or cleans up; patient completes activity. [place] assists only prior to or following the activity. 4-Supervision or Touching Assistance-helper provides verbal cues and/or touching/steadying and/or contact guard assistance as patient completes activity. Assistance may be provided throughout the activity or intermittently. 3-Partial/Moderate Assistance-helper does LESS THAN HALF the effort. [place] lifts, holds or supports trunk or limbs, but provides less than half the effort. 2-Substantial/Maximal Assistance-helper does MORE THAN HALF the effort. [place] l ifts or holds trunk or limbs and provides more than half the effort. 1-Rwbwmsyfm-vxyaqj does ALL the effort. Patient does none of the effort to complete the activity. Or, the assistance of 2 or more helpers is required for the patient to complete the activity. If activity was not attempted, code reason: 7-Patient Refused. 9-Not Applicable-not attempted and the patient did not perform the activity before the current illness, exacerbation or injury. 10-Not Attempted due to Environmental Limitations-(lack of equipment, weather restraints, etc.). 88-Not Attempted due to Medical Conditions or Safety Concerns. Bed Mobility: 6 Transfers (B,C,W/C): 6 Gait: 6 Stairs: 6 Indoor Mobility (Ambulation): Independent Stairs: Independent Prior Devices Use: Other-see list below (cane) PT Evaluation-Current Subjective Patient agrees to PT. Objective Patient Orientation: Normal For Age ROM/Strength ROM Lower Extremities bilateral LE WFL Strength Lower Extremities 4/5 grossly bilateral LE all planes Integumentary/Posture Bowel Incontinence: No Bladder Incontinence: No Posture slightly kyphotic Neuromuscular (Tone, Coordination, Reflexes) grossly intact Sensory Vision: Wears Glasses Hearing: Hearing Aid/Aides Transfers Lying to Sitting/Side of Bed(Q: 6 Sit to Stand (QC): 6 Chair/Boi-si-Pjxbr Xfer(QC): 6 Gait Mode of Locomotion: Walk Anticipated Mode of Locomotion: Walk Walk 10 feet (QC): 6 Walk 50 ft with 2 Turns(QC): 6 Walk 150 ft (QC): 6 Distance: 400' Gait Assistive Device: None Comments/Gait Description safe and functional with no deviation Balance Sitting Static: Normal Sitting Dynamic: Normal Standing Static: Good Standing Dynamic: Good Picking up an Object (QC): 6 Assessment/Needs Patient is currently at independent [facility] with all gross motor skills and does not require skilled PT intervention at this time. Rehab Potential: Fair PT Plan Treatment/Plan Treatment Plan: Discontinue PT, goals met Treatment Duration: Jan 21, 2023 Frequency: 1 time per week Estimated Hrs Per Day: .25 hour per day Patient and/or Family Agrees t: Yes Time Time In: 710 Time Out: 726 DATE: Jan 21, 2023 Total Billed Treatment Time: 16 Total Billed Treatment 1 visit [facility] 16 min ANNABELLE BLOOM PT Jan 21, 2023 08:15
[2023-01-21] MEDS ORDERED: NICOTINE PATCH REMOVAL TP SCH (08:59)
[2023-01-21] MEDS ORDERED: ASPIRIN 325 MG (5 GR) TABLET PO SCH (09:00)
[2023-01-21] MEDS ORDERED: NICOTINE 14 MG (NICODERM) PATCH TD SCH (09:00)
[2023-01-21] MEDS ORDERED: CLOPIDOGREL 75 MG (PLAVIX) TABLET PO SCH (09:00)
[2023-01-21] MEDS ORDERED: ASPI-999 PO (09:16)
--- NOTE | 2023-01-21 09:19 | Discharge Inst-Simple/Standard ---
Discharge Inst-Standard Discharge Medications New, Converted or Re-Newed RX: Transmitted to Pharmacy Patient Instructions/Follow Up Plan of Care/Instructions/FU: Please continue to take your medications as written. Please follow up with your primary care doctor to follow up this hospital stay. Please continue to work on cutting back on smoking. Please check your blood pressures at home off your amlodipine. If you blood pressure is consistently above 160/100 please restart it. Activity as Tolerated: Yes Discharge Diet: No Restrictions Return to The Hospital For: Chest pain, weakness, confusion, shortness of breath, fever, weakness, if you feel you are getting worse. SUJATA CAMPBELL MD Jan 21, 2023 09:19
--- NOTE | 2023-01-21 09:21 | Discharge Summary ---
Diagnosis/Chief Complaint Date of Admission Jan 20, 2023 at 16:27 Date of Discharge Discharge Date: Jan 21, 2023 Admission Diagnosis TIA Primary Care Farooq Gasca MD Discharge Diagnosis Acute CVA (1) Hypertension Status: Acute (2) Prostate cancer Discharge Summary Discharge Physical Exam Allergies: Coded Allergies: Penicillins (Verified Allergy, Mild, HIVES, 12/17/17) Vitals & I&Os Vital Signs Date Time Temp Pulse Resp B/P (MAP) Pulse Ox O2 Delivery O2 Flow Rate FiO2 01/21/23 13:45 01/21/23 11:17 36.1 71 16 97 Room Air General Appearance: No Apparent Distress, Thin Cardiovascular: Regular Rate, Rhythm, No Murmur Gastrointestinal: Normal Bowel Sounds, Soft Neurologic/Psychiatric: Alert, Oriented x3, Normal Mood/Affect; No Aphasia, No Facial Droop, No Motor Weakness Hospital Course Patient is 72-year-old male past medical history of hypertension, tobacco abuse, prostate cancer who presented to the emergency department due to confusion. He had difficulty typing what he was thinking which is very unusual for him. He was brought into the ER and symptoms resolved in the emergency room. He was worked up as a stroke and admitted for observation due to concern for TIA as symptoms had resolved. [facility] stroke neurology was contacted and r ecommended management here with aspirin and Plavix and MRI in the morning MRI was done which showed a small area in the left parietal lobe concerning for an acute infarct though given the configuration could not exclude a mass and recommended 1 month follow-up MRI. There was also a small area of the infarct in posterior right frontal lobe. He also had small vessel disease. There was concern for signal changes in the periventricular region which could be seen with a demyelinating process though clinically this did not seem to correlate. I did call and update his primary care physician of the all of these findings and he plans to repeat MRI in a month. I updated the patient and his regarding the findings of acute infarcts vs mass and need for follow-up in a month. He was discharged home on aspirin and Plavix along with high intensity statin. He plans to follow-up with his primary care physician this afternoon. The day after DC I received a call about him having a headache and still some speech and typing issues. I recommended him return to the ER. I saw him in the ER and he was at his baseline from DC but recommended CT Head to rule out hemmorrhagic conversion. This was negative. Referral was placed for outpatient speech therapy from this encounter and Dr Carbajal discharged him from the ER. Labs (last 24 hrs) Patient resulted labs reviewed. Pending Labs Imaging: Reviewed Imaging Report Discussion & Recommendations Discharge Planning: >30 minutes discharge planning Discharge Home Medications: Active Scripts Active Nicotine Patch (Nicotine) 14 Mg/24 Hour Patch.td24 14 Mg TD DAILY Atorvastatin Calcium 80 Mg Tablet 80 Mg PO DAILY Clopidogrel (Clopidogrel Bisulfate) 75 Mg Tablet 75 Mg PO DAILY Aspirin 81 Mg Tab.chew 81 Mg PO DAILY Reported Losartan Potassium 100 Mg Tablet 100 Mg PO DAILY Instructions to patient/family Please see electronic discharge instructions given to patient. Clinical Quality Measures Stroke: Date of last known well: Jan 20, 2023 Time of last known well: 08:30 Symptoms onset unknown: No Smoking Cessation Counseling: Counseling-Symptomatic: 3-10 Minutes Discussed Options Including: Nicotine Patch Problem Qualifiers (1) Hypertension: Hypertension type: primary hypertension Qualified Codes: I10 - Essential (primary) hypertension SUJATA CAMPBELL MD Jan 21, 2023 09:21
[2023-01-21] MEDS ORDERED: LORazepam 0.5 MG (ATIVAN) TABLET PO PRN (09:45)
--- NOTE | 2023-01-21 10:52 | Diagnostic Imaging Report ---
Clinical indications: Patient is having some confusion yesterday. Possible stroke. Exam: MRI of the brain performed without IV contrast. Sequences include axial DWI, ADC map, axial T1, axial T2, axial FLAIR, coronal gradient echo, and sagittal T1. Comparison: CT angiogram of head and neck and head CT dated 01/20/2023. Findings: There is a small area of diffusion restriction measuring 2.2 cm x 2.4 cm in greatest axial dimension involving the left parietal lobe periventricular region. There is slight heterogeneous high/isointense to brain T2 signal in the region. There are small areas of diffusion restriction involving the cortical and subcortical region of the high posterior right frontal lobe precentral gyrus region with small amount of increased T2 signal in the region. There is no brain herniation or midline shift. There are diffuse focal, and patchy and confluent areas of high T2 signal white matter changes involving both cerebral hemispheres and periventricular region, likely representing chronic small vessel ischemic disease. Some of the areas of high T2 signal have a ovoid configuration and are periventricular in location. These may have the appearance of a demyelinating process, but clinical correlation would better evaluate. The brain parenchymal volume appears appropriate for patient's age. There is no hydrocephalus. Basal cisterns are unremarkable. Extracranial soft tissues, skull, and orbits are unremarkable. There is a small to moderate amount of mucosal thickening involving left maxillary sinus. There is mild to moderate mucosal thickening involving the ethmoid sinus and small amount of fluid mucosal thickening involving the sphenoid sinus. Mastoid air cells are clear. IMPRESSION: 1: There is a small area of diffusion restriction involving left parietal lobe periventricular region. This area demonstrates hyperintense/isointense to brain parenchyma T2 signal. Prior brain imaging showed no evidence of enhancement in this area. This may represent an area of acute infarct. Given the configuration, a mass should be excluded. Follow-up MRI of the brain with or without contrast in 1 month is suggested to evaluate for interval evolution. 2: There is small areas of diffusion restriction involving the high posterior right frontal lobe precentral gyrus region concerning for acute infarcts. 3: Chronic small vessel ischemic disease and leukoaraiosis. 4: There are ovoid areas of increased T2 signal in the periventricular regions below both cerebral hemispheres which may be seen with a demyelinating process. Clinical correlation would better evaluate. Dictated by: Dictated on workstation # [id number]
--- NOTE | 2023-01-21 11:09 | Speech Therapy Progress Note ---
Therapy Progress Note The clinician received a consultation for a cognitive linguistic evaluation and the medical chart was reviewed. Upon initial attempt, the patient was out of the room at MRI. The patient's stated she believed the patient has returned to speech, language, and cognitive baseline. However, while the patient is at baseline, the patient's is concerned of the patient's suspected memory decline (minimal, progressive) and his ability to "say things quickly." The clinician asked for additional information and the patient's spouse's concerns appear to be related to word-finding skills as the patient is a working auctioneer. The clinician agreed to return when the patient was back from MRI to visit more extensively with both parties. The clinician returned shortly afterwards and discussed the patient's current skills and concerns with the patient (with the spouse present). The patient stated he has returned to baseline and does participate in the conversation appropriately (without paraphasia or anomia present). The patient does state he feels a progressive decline in the above skills prior to the suspected TIA. The clinician discussed outpatient services to refine, practice, and review memory and word-finding skills. 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 If concerns are present, the patient was encouraged to request a script from his PCP following discharge for outpatient speech pathology services. The patient and the patient's spouse agreed with the plan of care at this time. JAYLA MANN Jan 21, 2023 11:09
[2023-01-21 11:17] VITALS: BP 159/89
[2023-01-21] MEDS ORDERED: ATOR80TA76 PO (12:53)
[2023-01-21] MEDS ORDERED: CLOP75TA28 PO (12:53)
[2023-01-21] MEDS ORDERED: NICO-587 TD (12:54)
--- NOTE | 2023-01-22 09:26 | Speech Therapy Progress Note ---
Therapy Progress Note Speech pathology received a phone call from the patient's regarding speech pathology questions following discharge. Per patient's , the patient continues to display difficulty with numbers, typing, and writing. The speech pathologist recommended outpatient speech pathology services for the patient, discussed the process of referral and scheduling, and examples of specific tasks speech pathology can address. Additionally, the patient's reported the patient has "had a headache this morning" and wondered if she should be concerned. The clinician directed medical questions to the patient's PCP and the physician's discharge paperwork, as the questions were not within the clinician's scope of practice. The clinician also recommended the patient not hesitate to return to the hospital/emergency department with any health concerns which may or may not be related to his most recent hospitalization. The patient's verbalized comprehension of the recommendations and stated she would contact her physician's office this morning for a referral. The clinician emphasized the importance of following up with the physician for recommendations regarding the "headache" and any other symptoms to ensure the patient's medical needs were addressed accurately. The patient's stated she would follow up with the clinician once she was in contact with the PCP. JAYLA MANN Jan 22, 2023 09:26
== END 2023-01-21 13:50 | disposition home or self-care (01) ==
LOC: EDUNIT# 12:24 → ER 12:28 → CSD 16:27
PROVIDERS: ADMIT Family Medicine; ATTEND Family Medicine
DX: I10 Essential (primary) hypertension (principal); C61 Malignant neoplasm of prostate; G45.9 Transient cerebral ischemic attack, unspecified; R29.700 NIHSS score 0; F17.210 Nicotine dependence, cigarettes, uncomplicated
CPT/HCPCS: 70450; 70496; 70498; 70551; 71045; 80053 ×2; 80061; 81000; 82947; 84484; 85025; 85027; 85379; 85610; 85730; 93005; 93041; 94664; 97162; 99284; C8929; G0378; 36415; 93306

== ENCOUNTER 2023-01-22 11:21 | Emergency (ER) | payer MEDICARE ==
[~2023-01-22] VITALS: Ht 167 cm; Wt 45.6 kg
[~2023-01-22 11:21] MED LIST changes: +ASPI-999 PO; +ATOR80TA76 PO; +CLOP75TA28 PO; +NICO-587 TD
--- NOTE | 2023-01-22 11:42 | ED Neurological Problem ---
General Stated Complaint: HEADACHE | BLOOD PRESSURE ISSUES History of Present Illness Date Seen by Provider: Jan 22, 2023 Time Seen by Provider: 11:42 Initial Comments 72-year-old male presents with continued headache following a CVA. Patient was discharged yesterday following a diagnosis of an acute CVA by MRI. Patient had minimal deficits with some minor discoordination and some minor confusion. He continues to have symptoms along with some mild headache and sinus congestion. They were concerned about him still having these type of symptoms. They discussed with Dr. Sanchez who was her attending while hospitalized who sent him to the ER for repeat CT to make sure they become a hemorrhagic stroke. Allergies and Home Medications Allergies Coded Allergies: Penicillins (Verified Allergy, Mild, HIVES, 12/17/17) Patient Home Medication List Home Medication List Reviewed: Yes Aspirin (Aspirin) 81 Mg Tab.chew, 81 MG PO DAILY Prescribed by: SUJATA SANCHEZ on 01/21/23 0916 Atorvastatin Calcium (Atorvastatin Calcium) 80 Mg Tablet, 80 MG PO DAILY Prescribed by: SUJATA ASNCHEZ on 01/21/23 1253 Clopidogrel Bisulfate (Clopidogrel) 75 Mg Tablet, 75 MG PO DAILY Prescribed by: SUJATA SANCHEZ on 01/21/23 1253 Losartan Potassium (Losartan Potassium) 100 Mg Tablet, 100 MG PO DAILY, (Reported) Entered as Reported by: JAYLA ANGEL on 12/17/17 1009 Nicotine (Nicotine Patch) 14 Mg/24 Hour Patch.td24, 14 MG TD DAILY Prescribed by: SUJATA SANCHEZ on 01/21/23 1254 Discontinued Medications Amlodipine Besylate (Amlodipine Besylate) 5 Mg Tablet, 5 MG PO DAILY, (Reported) Entered as Reported by: JAYLA ANGEL on 12/17/17 1009 Review of Systems Review of Systems Constitutional: see HPI Eyes: No Symptoms Reported Ears, Nose, Mouth, Throat: no symptoms reported Respiratory: no symptoms reported Cardiovascular: no symptoms reported Gastrointestinal: no symptoms reported Genitourinary: no symptoms reported Musculoskeletal: see HPI Psychiatric/Neurological: See HPI Past Raveiwe-Xbgymn-Wvzwam Hx Immunizations Up To Date First/Initial COVID19 Vaccinat: YES Second COVID19 Vaccination Stas: YES Seasonal Allergies Seasonal Allergies: No Past Medical History Surgery/Hospitalization HX: PROSTATE CANCER, HTN HERNIA SURGERY Surgeries: Yes (HERNIA) Respiratory: No Currently Using CPAP: No Currently Using BIPAP: No Cardiac: Yes Hypertension Neurological: No Reproductive Disorders: No Sexually Transmitted Disease: No HIV/AIDS: No Genitourinary: No Gastrointestinal: Yes (INGUINAL HERNIA) Musculoskeletal: No Endocrine: No HEENT: No Loss of Vision: Bilateral Hearing Impairment: Hard of Hearing, Bilateral Hearing Aide Cancer: No Psychosocial: No Integumentary: No Blood Disorders: No Adverse Reaction/Blood Tranf: No (N/A) Physical Exam Vital Signs Vital Signs - First Documented 01/22/23 11:30 Temp 35.7 Pulse 84 Resp 20 B/P (MAP) 143/82 (102) Pulse Ox 100 Capillary Refill : Height, Weight, BMI Height: 5'6.00" Weight: 117lbs. 0.0oz. 53.249628pm; 16.21 BMI Method: General Appearance: WD/WN, no apparent distress HEENT: PERRL/EOMI Respiratory: lungs clear, normal breath sounds Cardiovascular: normal peripheral pulses, regular rate, rhythm Neurologic/Psychiatric: alert, normal mood/affect, oriented x 3 Skin: normal color, warm/dry Stroke NIH Stroke Scale Assessment Gaze: Normal (0), Total: Stroke Thrombolytic Exclusion Improving Symptoms: Yes Progress/Results/Core Measures Results/Orders My Orders Orders - RUBIN DWYER DO Ct Head Wo-R/O Stroke (01/22/23 11:42) Vital Signs/I&O 01/22/23 11:30 Temp 35.7 Pulse 84 Resp 20 B/P (MAP) 143/82 (102) Pulse Ox 100 Progress Progress Note : Progress Note Patient is case was discussed with Dr. Love who provided history of prior to his arrival, also discussed case when she came to the ER and also saw patient. Patient CT was ordered and reviewed and shows no acute findings and no signs of hemorrhagic stroke. I long discussion with patient regarding long-term care recovery and need to partake in physical therapy and speech therapy. Patient has no acute changes and will be discharged home. Patient's morbidity and mortality is at increased risk due to his significant determinants of health. Discussed with them the need to have close follow-up with her primary care provider to help guide to the recovery process and outpatient therapy. He was stable upon discharge Departure Impression Primary Impression: TIA (transient ischemic attack) Disposition: HOME, SELF-CARE Condition: Stable Departure-Patient Inst. Referrals: GEORGE GEORGES MD (PCP/Family) Primary Care Physician Patient Instructions: Recovery After Stroke Add. Discharge Instructions: Please follow-up closely with your primary care provider. They can help you with further therapyand physical therapy if needed. Return to the ER with any concerns. RUBIN DWYER DO Jan 22, 2023 11:42
--- NOTE | 2023-01-22 12:25 | Diagnostic Imaging Report ---
PROCEDURE: CT head wo r/o stroke. TECHNIQUE: Multiple contiguous axial images were obtained through the brain without the use of intravenous contrast. Auto Exposure Controls were utilized during the CT exam to meet ALARA standards for radiation dose reduction. INDICATION: Neurologic deficit. COMPARISON: 01/20/2023. FINDINGS: Ventricles and sulci are within normal limits for size. Patchy areas of low density are again demonstrated in the cerebral white matter without evidence of new geographic low density to indicate territorial infarct. There is no evidence of hemorrhage. There is no abnormal mass effect or shift of midline structures. IMPRESSION: Stable chronic findings in the brain without CT evidence of acute intracranial abnormality. Dictated by: Dictated on workstation # [id number]
[2023-01-22 13:18] VITALS: BP 155/84
== END 2023-01-22 13:18 | disposition home or self-care (01) ==
LOC: EDUNIT# 11:21 → ER 11:22
DX: G45.9 Transient cerebral ischemic attack, unspecified (principal)
CPT/HCPCS: 70450

== ENCOUNTER 2023-01-30 08:32 | Outpatient (RCR) | payer MEDICARE | END 2023-02-02 | disposition home or self-care (01) | PROVIDERS: ATTEND Family Medicine | DX: G31.84 Mild cognitive impairment of uncertain or unknown etiology (principal); I10 Essential (primary) hypertension ==

== ENCOUNTER 2023-02-06 05:39 | Outpatient (CLI) | payer MEDICARE | END 2023-02-06 14:23 | disposition home or self-care (01) | LOC: PREOP 05:39 | PROVIDERS: ATTEND Radiology Radiation Oncology | DX: Z01.818 Encounter for other preprocedural examination (principal) ==

== ENCOUNTER 2023-03-04 08:40 | Outpatient (RCR) | payer MEDICARE ==
[~2023-03-04 08:40] MED LIST changes: -LOSA100T57 PO; +LOSA100T58 PO
== END 2023-03-05 | disposition home or self-care (01) ==
PROVIDERS: ATTEND Family Medicine
DX: G31.84 Mild cognitive impairment of uncertain or unknown etiology (principal)

== ENCOUNTER → 2023-03-07 | Outpatient (CLI) | payer MEDICARE ==
[~2023-03-07] MED LIST changes: +LOSA100T57 PO; -LOSA100T58 PO
--- NOTE | 2023-03-07 10:14 | Diagnostic Imaging Report ---
CLINICAL INDICATION: Patient has had a possible stroke. Other abnormal findings on diagnostic imaging of central nervous system. Patient newly diagnosed prostate cancer, receiving treatment. Exam: MRI of the brain performed without IV contrast. Sequences include axial DWI, ADC map, axial T1, axial T2, axial FLAIR, coronal gradient echo, sagittal T1, and coronal 3-D FSPGR with axial and sagittal reformatted images. Comparison: MRI of the brain without contrast dated 01/21/2023. Findings: There is no evidence of acute cerebral infarct, intracranial hemorrhage, or gross mass effect. There is interval increased size in the amount of patchy elevated DWI signal with mixed low/high T2 signal involving the bilateral parietal lobe periventricular regions with the left side more than the right. The largest area involves the left parietal periventricular region which measures grossly 3.5 cm x 2.3 cm compared to the prior study measured at 2.4 cm x 2.2 cm. The small patchy areas of elevated DWI signal with mixed high/isointense ADC map signal involving the high parasagittal posterior right frontal/parietal lobe region has similar size and configuration. There is a new 7 mm area of similar abnormal signal closely adjacent to this previously seen area. There is mixed hyperintense/isointense T2 signal involving these areas of abnormal DWI signal. The remainder of the patchy and ovoid areas of high T2 signal white matter changes involving both cerebral hemispheres and periventricular regions have not changed in the interim. The confluent periventricular high T2 signal is otherwise not changed in the interim besides the areas of abnormal DWI signal. The brain parenchymal volume appears appropriate for patient's age. There is no brain herniation or midline shift. There is no hydrocephalus. Basal cisterns are unremarkable. The visualized [place] vascular structures are unremarkable. The extracranial soft tissues, skull, and orbits are unremarkable. There are small mucus retention cysts involving the left maxillary sinus and sphenoid sinus having developed in the interim. There is mild mucosal thickening involving the left maxillary sinus, ethmoid sinus, and sphenoid sinus. The degree of paranasal sinus disease involving the left maxillary sinus has slightly improved. Mastoid air cells are clear. IMPRESSION: 1: There is interval progression of abnormal signal involving the bilateral parietal lobe periventricular regions (left side more than the right), and high posterior right parasagittal posterior right frontal/parietal lobe region. There is also slight progression of abnormal T2 signal in these areas, as well. Since no IV contrast was administered, unable to determine if there is associated enhancement. Differential consideration would include a toxic or inflammatory demyelinating process or leukoencephalopathy from brain parenchyma posttreatment changes. Infectious or inflammatory cerebritis may be considered. Neoplastic process such as UROLOGIST PHYSICIAN lymphoma is not excluded. MRI of the brain postcontrast is suggested for better evaluation. Lumbar puncture is also suggested to better evaluate. 2: The remainder of the patchy and ovoid areas of high T2 signal white matter changes involving both cerebral hemispheres and periventricular regions have not significantly changed in the interim. These high T2 signal lesions have the pattern of a possible demyelinating process. Clinical correlation is suggested. Results of this report discussed with Dr. Farooq Gasca via the telephone on 03/07/2023 at 0925 hours. Dictated by: Dictated on workstation # [id number]
== END ==
LOC: RAD 08:00
PROVIDERS: ATTEND Family Medicine
DX: R90.89 Other abnormal findings on diagnostic imaging of central nervous system (principal); Z86.73 Personal history of transient ischemic attack (TIA), and cerebral infarction without residual deficits
CPT/HCPCS: 70551

== ENCOUNTER 2023-03-13 09:32 | Outpatient (RCR) | payer MEDICARE ==
[2023-03-12 09:19] LABS: BASOPHILS # (AUTO) 0.1 10^3/uL (0.0-0.1); BASOPHILS % (AUTO) 1 % (0-10); EOSINOPHILS # (AUTO) 0.3 10^3/uL (0.0-0.3); EOSINOPHILS % (AUTO) 4 % (0-10); HEMATOCRIT 36 % (40-54); HEMOGLOBIN 12.3 g/dL (13.3-17.7); LYMPHOCYTES # (AUTO) 2.7 10^3/uL (1.0-4.0); LYMPHOCYTES % (AUTO) 36 % (12-44); MEAN CORPUSCULAR HEMOGLOBIN 31 pg (25-34); MEAN CORPUSCULAR HGB CONC 34 g/dL (32-36); MEAN CORPUSCULAR VOLUME 91 fL (80-99); MEAN PLATELET VOLUME 9.2 fL (9.0-12.2); MONOCYTES # (AUTO) 0.7 10^3/uL (0.0-1.0); MONOCYTES % (AUTO) 9 % (0-12); NEUTROPHILS # (AUTO) 3.8 10^3/uL (1.8-7.8); NEUTROPHILS % (AUTO) 50 % (42-75); PLATELET COUNT 291 10^3/uL (130-400); WHITE BLOOD COUNT 7.5 10^3/uL (4.3-11.0)
[2023-03-12 09:42] LABS: BILIRUBIN,TOTAL 0.4 MG/DL (0.1-1.0); CALCIUM 9.6 MG/DL (8.5-10.1); CREATININE SERUM 0.74 MG/DL (0.60-1.30); POTASSIUM 4.1 MMOL/L (3.6-5.0); TOTAL PROTEIN 6.7 GM/DL (6.4-8.2)
[~2023-03-13 09:32] MED LIST changes: -LOSA100T57 PO; +LOSA100T58 PO
[2023-03-13 10:25] LABS: BILIRUBIN,URINE NEGATIVE (NEGATIVE); CLARITY,URINE CLEAR; COLOR,URINE YELLOW; GLUCOSE, URINE (UA) NEGATIVE (NEGATIVE); KETONES,URINE NEGATIVE (NEGATIVE); LEUKOCYTE ESTERASE ,URINE NEGATIVE (NEGATIVE); NITRITE,URINE NEGATIVE (NEGATIVE); PH,URINE 5.5 (5-9); PROTEIN,URINE NEGATIVE (NEGATIVE)
[2023-03-13 10:37] LABS: BACTERIA,URINE NEGATIVE /HPF; RBC,URINE RARE /HPF; SQUAMOUS EPITHELIAL CELL,UR RARE /HPF
[2023-04-02] MEDS ORDERED: CETI10TA17 PO (10:30)
[2023-04-02] MEDS ORDERED: ATOR80TA76 PO (10:30)
[2023-04-02] MEDS ORDERED: AMLO-250 PO (10:30)
[2023-04-02] MEDS ORDERED: ASPI-1238 PO (10:30)
== END 2023-04-04 | disposition home or self-care (01) ==
LOC: ONC 09:32
PROVIDERS: ATTEND Internal Medicine Hematology & Oncology
DX: C61 Malignant neoplasm of prostate (principal); I10 Essential (primary) hypertension
CPT/HCPCS: 36415; 80053; 81000; 84153; 84403; 85025; 99213

== ENCOUNTER 2023-03-27 08:32 | Outpatient (RCR) | payer MEDICARE ==
[2023-04-02] MEDS ORDERED: AMLO-250 PO (10:30)
[2023-04-02] MEDS ORDERED: ASPI-1238 PO (10:30)
[2023-04-02] MEDS ORDERED: CETI10TA17 PO (10:30)
[2023-04-02] MEDS ORDERED: ATOR80TA76 PO (10:30)
== END 2023-04-04 | disposition home or self-care (01) ==
PROVIDERS: ATTEND Family Medicine
DX: Z86.73 Personal history of transient ischemic attack (TIA), and cerebral infarction without residual deficits (principal)

== ENCOUNTER 2023-04-01 11:31 | Observation (INO) | payer MEDICARE ==
[~2023-04-01] VITALS: Ht 167 cm; Wt 52.8 kg
[2023-04-01] VITALS (9 sets, daily range): BP systolic 102–138; BP diastolic 57–79
--- NOTE | 2023-04-01 12:14 | ED Neurological Problem ---
General Chief Complaint: Neuro-Stroke Like Symptoms Stated Complaint: STROKE SYMPTOMS Nursing Triage Note: Patient to ED room 1 via POV c/o L sided facial numbness and dizziness that started this morning. reports some symptoms started Friday (03/30) but patient refused to come to ER that day. Patient reports some weakness upon waking today that has gotten progressively worse throughout the day. reports patient has been weaker than normal today. Source: patient, family, old records Exam Limitations: clinical condition History of Present Illness Date Seen by Provider: Apr 01, 2023 Time Seen by Provider: 11:44 Initial Comments This 72-year-old gentleman presents to the emergency room via private vehicle with concerns about left-sided facial numbness, difficulty walking, and numbness and weakness of the left extremities. He is normally able to ambulate independently with a cane. Today he is unable to safely walk on his own. He also has complained of some blurry vision previously in the right eye and now in the left eye. Family notes he was developing symptoms already on Friday, March 29, about 4 days ago. He has not had his normal function since then. Patient has history of stroke in January. He had follow-up with his primary care provider and had further imaging studies including MRI on March 07. Abnormal findings on the MRI studies from January and March prompted referral to neurology. He has been seen by Dr. Nobles at [facility]. Further work-up has been recommended including MRI of the brain with and without contrast. He also has outpatient labs pending. He had his consultation with Dr. Nobles last week. Patient also receives treatment for prostate cancer including leuprolide androgen deprivation therapy (ADT). Further treatment with radiation is anticipated in the near future. Dr. Gasca is his primary care provider. Allergies and Home Medications Allergies Coded Allergies: Penicillins (Verified Allergy, Mild, HIVES, 12/17/17) Patient Home Medication List Home Medication List Reviewed: Yes Aspirin (Aspirin) 81 Mg Tab.chew, 81 MG PO DAILY Prescribed by: SUJATA SANCHEZ on 01/21/23 0916 Atorvastatin Calcium (Atorvastatin Calcium) 80 Mg Tablet, 80 MG PO DAILY Prescribed by: SUJATA SANCHEZ on 01/21/23 1253 Clopidogrel Bisulfate (Clopidogrel) 75 Mg Tablet, 75 MG PO DAILY Prescribed by: SUJATA SANCHEZ on 01/21/23 1253 Losartan Potassium (Losartan Potassium) 100 Mg Tablet, 100 MG PO DAILY, (Reported) Entered as Reported by: JAYLA ANGEL on 12/17/17 1009 Nicotine (Nicotine Patch) 14 Mg/24 Hour Patch.td24, 14 MG TD DAILY Prescribed by: SUJATA SANCHEZ on 01/21/23 1254 Review of Systems Review of Systems Constitutional: weakness Eyes: Other (Feels like "left eye wants to close") Ears, Nose, Mouth, Throat: see HPI Respiratory: no symptoms reported Cardiovascular: no symptoms reported Gastrointestinal: no symptoms reported Genitourinary: no symptoms reported Musculoskeletal: no symptoms reported Skin: no symptoms reported Psychiatric/Neurological: See HPI Endocrine: No Symptoms Reported Hematologic/Lymphatic: No Symptoms Reported Past Jetpnqv-Hopbsr-Fdwssh Hx Patient Social History Tobacco Use?: Yes Smoking Status: Former Smoker (Quit January 2023) Use of E-Cig and/or Vaping dev: No Substance use?: No Alcohol Use?: Yes Alcohol type: Beer Alcohol Frequency: Daily (2-3 beers) Immunizations Up To Date First/Initial COVID19 Vaccinat: "3 SHOTS" Second COVID19 Vaccination Stas: YES Seasonal Allergies Seasonal Allergies: No Past Medical History Surgery/Hospitalization HX: PROSTATE CANCER, HTN HERNIA SURGERY STROKE 01/20/23 Surgeries: Yes (HERNIA) Respiratory: No Currently Using CPAP: No Currently Using BIPAP: No Cardiac: Yes Hypertension Neurological: Yes Stroke Reproductive Disorders: No Sexually Transmitted Disease: No HIV/AIDS: No Genitourinary: No Gastrointestinal: Yes (INGUINAL HERNIA) Musculoskeletal: No Endocrine: No HEENT: No Loss of Vision: Bilateral Hearing Impairment: Hard of Hearing, Bilateral Hearing Aide Cancer: Yes Prostate Did You Recieve Any Treatments: Yes (ADT) Psychosocial: No Integumentary: No Blood Disorders: No Adverse Reaction/Blood Tranf: No (N/A) Physical Exam Vital Signs Vital Signs - First Documented 04/01/23 04/01/23 11:33 19:49 Temp 35.7 Pulse 75 Resp 18 B/P (MAP) 138/64 (88) Pulse Ox 98 O2 Delivery Room Air Capillary Refill : Less Than 3 Seconds Height, Weight, BMI Height: 5'6.00" Weight: 117lbs. 0.0oz. [id number]; 17.00 BMI Method: General Appearance: WD/WN, mild distress (Initially appeared mildly anxious), thin HEENT: PERRL/EOMI, normal ENT inspection, pharynx normal Neck: normal inspection Respiratory: lungs clear, normal breath sounds, no respiratory distress Cardiovascular: regular rate, rhythm, no edema, no murmur Gastrointestinal: normal bowel sounds, non tender, soft Extremities: normal inspection, no pedal edema Neurologic/Psychiatric: alert, abnormal sewing demonstrator II-XII (Numbness to the left face. Difficulty with tracking on the H eye exam either from inattention or extraocular palsy.), motor weakness (Left lower extremity weakness), other (Disoriented to age) Crainal Nerves: PERRL Coordination/Gait: normal finger to nose, abnormal gait (Shuffled wide gait) Motor/Sensory: weak motor strength LLE Skin: normal color, warm/dry Stroke NIH Stroke Scale Assessment Select: Initial Level of Consciousness: 0=Alert (0), Level of Consciousness- Questions: 1=Answers one question (1), LOC Commands: 0=Performs both tasks (0), Gaze: Partial Gaze Palsy (1), Visual Zhou: 0=No visual loss (0), Facial Movement (Facial Paresis): 0=Normal symmetrical mnt (0), Motor Function-Arms Right: 0=No drift (0), Motor Function-Arms Left: 0=No drift (0), Motor Function-Legs Right: 0=No drift (0), Motor Function-Legs Left: 2=Some effort/gravity (2), Limb Ataxia: 0=Absent Normal lbzp-wt-rjvy and idbefh-mp-tqnl, but wide shuffled gait (0), Sensory: 0=Normal:no loss (0), Best Language: 0=No aphasia (0), Dysarthria: 0=Normal (0), Extinction & Inattention: 0=No abnormality (0), Total: 4 Stroke Thrombolytic Exclusion Improving Symptoms: Yes Progress/Results/Core Measures Results/Orders Lab Results Laboratory Tests Test 04/01/23 11:45 04/01/23 12:19 04/01/23 12:58 Range/Units White Blood Count 9.0 4.3-11.0 10^3/uL Red Blood Count 3.88 L 4.30-5.52 10^6/uL Hemoglobin 11.8 L 13.3-17.7 g/dL Hematocrit 35 L 40-54 % Mean Corpuscular Volume 91 80-99 fL Mean Corpuscular Hemoglobin 30 25-34 pg Mean Corpuscular Hemoglobin Concent 34 32-36 g/dL Red Cell Distribution Width 12.8 10.0-14.5 % Platelet Count 314 130-400 10^3/uL Mean Platelet Volume 9.8 9.0-12.2 fL Immature Granulocyte % (Auto) 0 % Neutrophils (%) (Auto) 48 42-75 % Lymphocytes (%) (Auto) 36 12-44 % Monocytes (%) (Auto) 11 0-12 % Eosinophils (%) (Auto) 5 0-10 % Basophils (%) (Auto) 1 0-10 % Neutrophils # (Auto) 4.3 1.8-7.8 10^3/uL Lymphocytes # (Auto) 3.2 1.0-4.0 10^3/uL Monocytes # (Auto) 1.0 0.0-1.0 10^3/uL Eosinophils # (Auto) 0.5 H 0.0-0.3 10^3/uL Basophils # (Auto) 0.1 0.0-0.1 10^3/uL Immature Granulocyte # (Auto) 0.0 0.0-0.1 10^3/uL Erythrocyte Sedimentation Rate 11 0-30 MM/HR Sodium Level 139 135-145 MMOL/L Potassium Level 4.4 3.6-5.0 MMOL/L Chloride Level 107 98-107 MMOL/L Carbon Dioxide Level 23 21-32 MMOL/L Anion Gap 9 5-14 MMOL/L Blood Urea Nitrogen 12 7-18 MG/DL Creatinine 0.74 0.60-1.30 MG/DL Estimat Glomerular Filtration Rate 97 BUN/Creatinine Ratio 16 Glucose Level 87 70-105 MG/DL Calcium Level 9.3 8.5-10.1 MG/DL Corrected Calcium 9.2 8.5-10.1 MG/DL Magnesium Level 2.2 1.6-2.4 MG/DL Total Bilirubin 0.4 0.1-1.0 MG/DL Aspartate Amino Transf (AST/SGOT) 25 5-34 U/L Alanine Aminotransferase (ALT/SGPT) 32 0-55 U/L Alkaline Phosphatase 77 40-136 U/L C-Reactive Protein High Sensitivity 0.07 0.00-0.50 MG/DL Total Protein 6.6 6.4-8.2 GM/DL Albumin 4.1 3.2-4.5 GM/DL TSH [place] Testing 0.50 0.35-4.94 UIU/ML Serum Alcohol < 10 <10 MG/DL Urine Color YELLOW Urine Clarity CLEAR Urine pH 6.5 5-9 Urine Specific [place] <=1.005 1.016-1.022 Urine Protein NEGATIVE NEGATIVE Urine Glucose (UA) NEGATIVE NEGATIVE Urine Ketones NEGATIVE NEGATIVE Urine Nitrite NEGATIVE NEGATIVE Urine Bilirubin NEGATIVE NEGATIVE Urine Urobilinogen 0.2 < = 1.0 MG/DL Urine Leukocyte Esterase NEGATIVE NEGATIVE Urine RBC (Auto) NEGATIVE NEGATIVE Urine RBC NONE /HPF Urine WBC NONE /HPF Urine Crystals NONE /LPF Urine Bacteria NEGATIVE /HPF Urine Casts NONE /LPF Urine Mucus NEGATIVE /LPF Urine Culture Indicated NO Blood Gas Puncture Site LEFT RADIAL Blood Gas Patient Temperature 36.2 Arterial Blood pH 7.45 H 7.37-7.43 Arterial Blood Partial Pressure CO2 35 35-45 MMHG Arterial Blood Partial Pressure O2 96 H 79-93 MMHG Arterial Blood HCO3 24 23-27 MMOL/L Arterial Blood Total CO2 25.1 21.0-31.0 MMOL/L Arterial Blood Oxygen Saturation 98 94-100 % Arterial Blood Base Excess 0.2 -2.5-2.5 MMOL/L Percy Test POSITIVE Blood Gas Ventilator Setting NO Blood Gas Inspired Oxygen N/A My Orders Orders - OFE MORGAN MD Ct Head Wo-R/O Stroke (04/01/23 12:10) Ed Iv/Invasive Line Start (04/01/23 12:10) Chest 1 View, Ap/Pa Only (04/01/23 12:10) Ekg Tracing (04/01/23 12:10) Monitor-Rhythm Ecg Trace Only (04/01/23 12:10) Alcohol (04/01/23 12:10) Cbc With Automated Diff (04/01/23 12:10) Comprehensive Metabolic Panel (04/01/23 12:10) Hs C Reactive Protein (04/01/23 12:10) Magnesium (04/01/23 12:10) Thyroid Analyzer (04/01/23 12:10) Ua Culture If Indicated (04/01/23 12:10) Arterial Blood Gas (04/01/23 12:52) Ct Angio Head/Neck (04/01/23 13:03) Iohexol Injection (Omnipaque 350 Mg/Ml 1 (04/01/23 13:45) Received Contrast (Hold Metformin- Contr (04/01/23 13:45) Sodium Chloride Flush (Catheter Flush Sy (04/01/23 13:45) Ns (Ivpb) (Sodium Chloride 0.9% Ivpb Bag (04/01/23 13:45) Thiamine Injection (Vitamin B-1 Injectio (04/02/23 09:00) Erythrocyte Sedimentation Rate (04/01/23 18:32) Ed Admission (Communication) (04/01/23 19:44) Thiamine Injection (Vitamin B-1 Injectio (04/01/23 19:49) Medications Given in ED Current Medications Medications Dose Ordered Sig/Jennifer Route Start Time Stop Time Status Last Admin Dose Admin Iohexol 75 ml ONCE ONCE IV 04/01/23 13:45 04/01/23 13:46 DC 04/01/23 13:46 75 ML Sodium Chloride 10 ml NEEDED PRN IV 04/01/23 13:45 04/01/23 13:46 10 ML Sodium Chloride 100 ml ONCE ONCE IV 04/01/23 13:45 04/01/23 13:46 DC 04/01/23 13:46 80 ML Vital Signs/I&O 04/01/23 04/01/23 11:33 19:49 Temp 35.7 36.5 Pulse 75 83 Resp 18 20 B/P (MAP) 138/64 (88) 168/72 Pulse Ox 98 O2 Delivery Room Air Room Air Blood Pressure Mean: 88 Progress Progress Note #1: Time: 16:13 Progress Note Patient was interviewed and examined in the emergency room. His family was also interviewed. Thorough work-up was pursued including noncontrast CT of the head and CTA angiogram of the head and neck. These were grossly unremarkable for acute processes. Labs demonstrated no specific abnormalities to explain his symptoms. Case was discussed with Dr. Sanchez, admitting hospitalist. She requested consultation with neurology before considering admission to our facility. I spoke with Dr. [place], neurologist at [facility]. I reviewed current imaging studies and and prior MRI reports with Dr. [place]. She recommended MRI with and without contrast as the next step. 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 Dr. [place] agreed with administration of thiamine. Progress Note #2: Progress Note Work-up findings and discussion with neurologist at [facility] were discussed with ravinder ramos and family. We discussed plan of admission with intent to obtain MRI with and without contrast in the morning. Patient seemed content with plan, but family appeared upset regarding their prior experiences with admission at this hospital and consultation with neurology at [facility] rather than with Dr. Nobles. In attempt to provide a more satisfying experience, admission was sought with Dr. Acevedo and phone consultation was sought with Dr. Nobles, his primary neurologist at [facility]. [facility] does not have neurology assistant plant controller. I was directed to the office in the paging service. I was eventually able to speak with Dr. Sykes, Dr. Nobles's partner. She agreed with both pursuing MRI with and without contrast as well as treating with thiamine. She agreed with the prior consult that transfer and admission to a tertiary care facility were not necessary tonight. She recommended proceeding with LP and CSF studies including evaluation for MS, CSF cytology, and VDRL if any nonvascular enhancing lesions were seen on MRI. She reviewed the notes from Dr. Nobles which also noted recommendation for EEG. She did not believe it was important for EEG to be obtained during this hospitalization. She listed labs that are still pending in [place] including lipid panel, LENORE with reflex positive, ANCA, angiotensin-converting enzyme, anti-DNA double-stranded antibody, ESR, CRP, rheumatoid factor, serum protein electrophoresis, serum immunofixation electrophoresis, lupus antilipid antibody panel with reflex. Sjogren's SSA and SSB antibody. She recommended MRI be performed with and without contrast with MS and tumor protocol that included sagittal imaging and coronal sections. She recommended continuing aspirin 81 mg and atorvastatin 80 mg. This information was communicated to Dr. Acevedo. Dr. Acevedo and I agree that it would be best if the specialized labs were obtained through the neurologist order at the selected facility rather than via send out labs at our facility. Patient, family, and I discussed CODE STATUS, and patient elects full code. Initial ECG Impression Date: Apr 01, 2023 Initial ECG Impression Time: 12:19 Initial ECG Rate: 64 Initial ECG Rhythm: Normal Sinus Initial ECG Intervals: Normal Initial ECG Impression: Normal Comment Normal sinus rhythm with no ST elevation or depression. No abnormal intervals or axis deviation. Diagnostic Imaging Diagonstic Imaging: Xray Plain Films/CT/US/NM/MRI: chest Comments NAME: [facility] SANC[facility] REC#: [id number] PT STATUS: REG ER : 1950 PHYSICIAN: OFE MORGAN MD ADMIT DATE: 04/01/23/ER Signed Date of Exam:04/01/23 CHEST 1 VIEW, AP/PA ONLY INDICATION: Shortness of air. COMPARISON: Radiograph of 01/20/2023. FINDINGS: Air trapping and COPD as chronic findings are present. No focal infiltrate, failure pattern, effusion, or pneumothorax. IMPRESSION: Chronic air trapping; otherwise, negative. Dictated by: Dictated on workstation # [id number] Dict: 04/01/23 1229 Trans: 04/01/23 1701 [id number] Interpreted by: FATEMEH HANSON Electronically signed by: FATEMEH HANSON 04/01/231700 Diagonstic Imaging: CT Plain Films/CT/US/NM/MRI: head Comments NAME: [facility] SANCHEZ [facility] REC#: [id number] PT STATUS: REG ER : 1950 PHYSICIAN: OFE MORGAN MD ADMIT DATE: 04/01/23/ER Signed Date of Exam:04/01/23 CT HEAD WO-R/O STROKE PROCEDURE: CT head wo r/o stroke. TECHNIQUE: Multiple contiguous axial images were obtained through the brain without the use of intravenous contrast. Auto Exposure Controls were utilized during the CT exam to meet ALARA standards for radiation dose reduction. INDICATION: Neuro deficit, left-sided facial numbness and dizziness COMPARISON: 01/22/2023. FINDINGS: No intracranial hyperdense hemorrhage or space-occupying mass. No hydrocephalus or midline shift. Horne-white matter differentiation is well-preserved. Stable periventricular hypoattenuation indicative of chronic microvascular ischemic change. Basilar cisterns are patent. No acute calvarial abnormality. Mucosal thickening is present in the bilateral ethmoid and sphenoid sinuses. Mastoid air cells are clear. Orbits are normal. IMPRESSION: 1. No acute intracranial hemorrhage or features of large territorial infarct. 2. Multifocal paranasal sinus disease has progressed since prior exam. Dictated by: Dictated on workstation # [id number] Dict: 04/01/23 1236 Trans: 04/01/231706 [facility] [id number] Interpreted by: BRADY LAM MD Electronically signed by: BRADY LAM MD 04/01/231706 Diagonstic Imaging: CT Plain Films/CT/US/NM/MRI: other (Angiogram head and neck) Comments NAME: [facility] SANCHE[facility] REC#: [id number] PT STATUS: REG ER : 1950 PHYSICIAN: OFE MORGAN MD ADMIT DATE: 04/01/23/ER Signed Date of Exam:04/01/23 CT ANGIO HEAD/NECK PROCEDURE: CT angiography of the head and CT angiography of the neck with and without contrast. TECHNIQUE: Contiguous noncontrast images were obtained from the skull base through the vertex. After intravenous contrast administration, helical CT angiography of the neck was performed. Source data was reformatted into 3D MIP projections. Delayed post contrast acquisition was also obtained. Auto Exposure Controls were utilized during the CT exam to meet ALARA standards for radiation dose reduction. INDICATION: Dizziness and left facial numbness. COMPARISON: Exam is compared with the most recent CT angiogram head and neck that was done 01/20/2023. FINDINGS: The delayed postcontrast-enhanced head CT showed no abnormal parenchymal or meningeal enhancement. Patchy periventricular and subcortical white matter hypodensities showed no significant change. No sulcal effacement. Dural venous sinuses are patent. CT ANGIOGRAM NECK: The left cervical vertebral artery is dominant; the right is somewhat small but nonpathologic. The right terminates intrathecally as the PICA as a variant. There are mixed soft and hard plaques at the carotid bulbs and bifurcations, which appear to result in 50% or less proximal ICA stenoses without findings of hemodynamically significant degree of stenosis present. CT ANGIOGRAM HEAD: There is intracranial carotid atherosclerotic calcified plaque resulting in mild diffuse narrowing of the left carotid siphon without hemodynamically significant degree of stenosis. The A1 segments, the A-comm, and the bilateral anterior cerebral arteries are widely patent. There are some mild diffuse atherosclerotic changes throughout the bilateral M1 segments as well as some distal branch small vessel disease. No intraluminal thrombus or MCA branch occlusion found. No aneurysm or vascular malformation. No change. The left intradural vertebral is dominant and is contiguous through the patent basilar. The right vertebral terminates as the PICA as a variant. The bilateral posterior cerebral arterial segments are patent. No intracranial aneurysm or vascular malformation. No visible thrombus, large or medium vessel occlusion. IMPRESSION: 1. Stable nonspecific subcortical and periventricular white matter disease. 2. Stable cervical and intracranial atherosclerotic changes without high-grade or hemodynamically significant focal stenosis, dissection, thrombus, or branch occlusion. No acute appearing abnormality identified. Dictated by: Dictated on workstation # [id number] Dict: 04/01/23 1409 Trans: 04/01/23 1701 [id number] Interpreted by: FATEMEH HANSON Electronically signed by: FATEMEH HANSON 04/01/231700 Departure Communication (Admissions) Time/Spoke to Admitting Phy: 18:42 Dr. Acevedo Impression Primary Impression: Left-sided weakness Additional Impression: Ataxia Disposition: 09 ADMITTED INPATIENT Condition: Stable Admissions Decision to Admit Reason: Admit from ER (General) Decision to Admit/Date: Apr 01, 2023 Time/Decision to Admit Time: 18:42 Departure-Patient Inst. Referrals: GEORGE GASCA MD (PCP) Primary Care Physician Copy Copies To 1: GEORGE GASCA MD, JOSHUA T MD Apr 01, 2023 12:14
[2023-04-01 12:26] LABS: BASOPHILS # (AUTO) 0.1 10^3/uL (0.0-0.1); BASOPHILS % (AUTO) 1 % (0-10); EOSINOPHILS # (AUTO) 0.5 10^3/uL (0.0-0.3); EOSINOPHILS % (AUTO) 5 % (0-10); HEMATOCRIT 35 % (40-54); HEMOGLOBIN 11.8 g/dL (13.3-17.7); LYMPHOCYTES # (AUTO) 3.2 10^3/uL (1.0-4.0); LYMPHOCYTES % (AUTO) 36 % (12-44); MEAN CORPUSCULAR HEMOGLOBIN 30 pg (25-34); MEAN CORPUSCULAR HGB CONC 34 g/dL (32-36); MEAN CORPUSCULAR VOLUME 91 fL (80-99); MEAN PLATELET VOLUME 9.8 fL (9.0-12.2); MONOCYTES % (AUTO) 11 % (0-12); NEUTROPHILS # (AUTO) 4.3 10^3/uL (1.8-7.8); NEUTROPHILS % (AUTO) 48 % (42-75); PLATELET COUNT 314 10^3/uL (130-400)
[2023-04-01 12:32] LABS: ALBUMIN 4.1 GM/DL (3.2-4.5); CHLORIDE 107 MMOL/L (98-107); POTASSIUM 4.4 MMOL/L (3.6-5.0); SODIUM 139 MMOL/L (135-145)
[2023-04-01 12:32] LABS: BILIRUBIN,URINE NEGATIVE (NEGATIVE); CLARITY,URINE CLEAR; COLOR,URINE YELLOW; GLUCOSE, URINE (UA) NEGATIVE (NEGATIVE); KETONES,URINE NEGATIVE (NEGATIVE); LEUKOCYTE ESTERASE ,URINE NEGATIVE (NEGATIVE); NITRITE,URINE NEGATIVE (NEGATIVE); PH,URINE 6.5 (5-9); PROTEIN,URINE NEGATIVE (NEGATIVE)
[2023-04-01 12:33] LABS: CALCIUM 9.3 MG/DL (8.5-10.1)
--- NOTE | 2023-04-01 12:33 | Diagnostic Imaging Report ---
INDICATION: Shortness of air. COMPARISON: Radiograph of 01/20/2023. FINDINGS: Air trapping and COPD as chronic findings are present. No focal infiltrate, failure pattern, effusion, or pneumothorax. IMPRESSION: Chronic air trapping; otherwise, negative. Dictated by: Dictated on workstation # [id number]
[2023-04-01 12:34] LABS: GLUCOSE 87 MG/DL (70-105); TOTAL PROTEIN 6.6 GM/DL (6.4-8.2)
[2023-04-01 12:35] LABS: CARBON DIOXIDE 23 MMOL/L (21-32)
[2023-04-01 12:36] LABS: BILIRUBIN,TOTAL 0.4 MG/DL (0.1-1.0)
[2023-04-01 12:37] LABS: ALKALINE PHOSPHATASE 77 U/L (40-136)
[2023-04-01 12:38] LABS: CREATININE SERUM 0.74 MG/DL (0.60-1.30); GFR ESTIMATED 97
[2023-04-01 12:39] LABS: BUN/CREATININE RATIO 16
[2023-04-01 12:41] LABS: ALANINE AMINOTRANSFERASE 32 U/L (0-55); MAGNESIUM 2.2 MG/DL (1.6-2.4)
--- NOTE | 2023-04-01 12:41 | Diagnostic Imaging Report ---
PROCEDURE: CT head wo r/o stroke. TECHNIQUE: Multiple contiguous axial images were obtained through the brain without the use of intravenous contrast. Auto Exposure Controls were utilized during the CT exam to meet ALARA standards for radiation dose reduction. INDICATION: Neuro deficit, left-sided facial numbness and dizziness COMPARISON: 01/22/2023. FINDINGS: No intracranial hyperdense hemorrhage or space-occupying mass. No hydrocephalus or midline shift. Horne-white matter differentiation is well-preserved. Stable periventricular hypoattenuation indicative of chronic microvascular ischemic change. Basilar cisterns are patent. No acute calvarial abnormality. Mucosal thickening is present in the bilateral ethmoid and sphenoid sinuses. Mastoid air cells are clear. Orbits are normal. IMPRESSION: 1. No acute intracranial hemorrhage or features of large territorial infarct. 2. Multifocal paranasal sinus disease has progressed since prior exam. Dictated by: Dictated on workstation # [id number]
[2023-04-01 12:49] LABS: BACTERIA,URINE NEGATIVE /HPF
[2023-04-01 13:01] LABS: ABG BASE EXCESS 0.2 MMOL/L (-2.5-2.5); ABG OXYGEN SATURATION 98 % (94-100); ABG PCO2 35 MMHG (35-45); ABG PH 7.45 (7.37-7.43); ABG PO2 96 MMHG (79-93); ABG TCO2 25.1 MMOL/L (21.0-31.0)
[2023-04-01 13:04] LABS: ALLENS TEST POSITIVE; PATIENT TEMP 36.2; VENTILATOR NO
[2023-04-01] MEDS ORDERED: NS 100 ML (IVPB) BAG IV ONE (13:45)
[2023-04-01] MEDS ORDERED: CATHETER FLUSH 10 ML SYR IV PRN (13:45)
[2023-04-01] MEDS ORDERED: HOLD METFORMIN - RECEIVED CONTRAST 20 ML VIAL IV SCH (13:45)
[2023-04-01] MEDS ORDERED: IOHEXOL 350 MG/ML 100 ML (OMNIPAQUE 350) VIAL IV ONE (13:45)
--- NOTE | 2023-04-01 14:25 | Diagnostic Imaging Report ---
PROCEDURE: CT angiography of the head and CT angiography of the neck with and without contrast. TECHNIQUE: Contiguous noncontrast images were obtained from the skull base through the vertex. After intravenous contrast administration, helical CT angiography of the neck was performed. Source data was reformatted into 3D MIP projections. Delayed post contrast acquisition was also obtained. Auto Exposure Controls were utilized during the CT exam to meet ALARA standards for radiation dose reduction. INDICATION: Dizziness and left facial numbness. COMPARISON: Exam is compared with the most recent CT angiogram head and neck that was done 01/20/2023. FINDINGS: The delayed postcontrast-enhanced head CT showed no abnormal parenchymal or meningeal enhancement. Patchy periventricular and subcortical white matter hypodensities showed no significant change. No sulcal effacement. Dural venous sinuses are patent. CT ANGIOGRAM NECK: The left cervical vertebral artery is dominant; the right is somewhat small but nonpathologic. The right terminates intrathecally as the PICA as a variant. There are mixed soft and hard plaques at the carotid bulbs and bifurcations, which appear to result in 50% or less proximal ICA stenoses without findings of hemodynamically significant degree of stenosis present. CT ANGIOGRAM HEAD: There is intracranial carotid atherosclerotic calcified plaque resulting in mild diffuse narrowing of the left carotid siphon without hemodynamically significant degree of stenosis. The A1 segments, the A-comm, and the bilateral anterior cerebral arteries are widely patent. There are some mild diffuse atherosclerotic changes throughout the bilateral M1 segments as well as some distal branch small vessel disease. No intraluminal thrombus or MCA branch occlusion found. No aneurysm or vascular malformation. No change. The left intradural vertebral is dominant and is contiguous through the patent basilar. The right vertebral terminates as the PICA as a variant. The bilateral posterior cerebral arterial segments are patent. No intracranial aneurysm or vascular malformation. No visible thrombus, large or medium vessel occlusion. IMPRESSION: 1. Stable nonspecific subcortical and periventricular white matter disease. 2. Stable cervical and intracranial atherosclerotic changes without high-grade or hemodynamically significant focal stenosis, dissection, thrombus, or branch occlusion. No acute appearing abnormality identified. Dictated by: Dictated on workstation # [id number]
[2023-04-01] MEDS ORDERED: THIAMINE INJECTION 500 MG in NS (IVPB) 50 ML IV STA (19:49)
[2023-04-01] MEDS ORDERED: polyethylene glycoL POWDER 17 GM (MIRALAX) PACK PO PRN (20:30)
[2023-04-01] MEDS ORDERED: ONDANSETRON 4 MG (ZOFRAN) ORAL DISSOLVE TAB PO PRN (20:30)
[2023-04-01] MEDS ORDERED: BISACODYL 10 MG SUPP (DULCOLAX) PR PRN (20:30)
[2023-04-01] MEDS ORDERED: diphenhydrAMINE 50 MG/ML INJ (BENADRYL) IVP PRN (20:30)
[2023-04-01] MEDS ORDERED: LACTULOSE SYRUP 10GM/15ML (ENULOSE) 30ML UDC PO PRN (20:30)
[2023-04-01] MEDS ORDERED: CALCIUM CARBONATE 500 MG (TUMS) TAB.CHEW PO PRN (20:30)
[2023-04-01] MEDS ORDERED: ANTACID SUSP 30 ML UDC (MYLANTA) PO PRN (20:30)
[2023-04-01] MEDS ORDERED: diphenhydrAMINE 25 MG TAB (BENADRYL) PO PRN (20:30)
[2023-04-01] MEDS ORDERED: MELATONIN 3 MG TABLET PO PRN (20:30)
[2023-04-01] MEDS ORDERED: HYDROmorphone 2 MG/ML VIAL (DILAUDID) IV PRN (20:30)
[2023-04-01] MEDS ORDERED: ALPRAZolam 1 MG (XANAX) TAB PO PRN (20:30)
[2023-04-01] MEDS ORDERED: MILK OF MAGNESIA 400 MG/5 ML 30 ML UDC PO PRN (20:30)
[2023-04-01] MEDS ORDERED: ONDANSETRON 4 MG/2 ML (SDV) Z0FRAN IV PRN (20:30)
[2023-04-01] MEDS ORDERED: ACETAMINOPHEN 325 MG TABLET PO PRN (20:30)
[2023-04-01] MEDS ORDERED: RT-ALBUTEROL SULF 2.5 MG/3 ML PRE-MIX VIAL INH PRN (21:00)
[2023-04-01] MEDS ORDERED: ENOXAPARIN INJECTION 30 MG/0.3 ML SYR SC SCH (22:30)
[2023-04-01] MEDS: SENNOSIDES 8.6 MG (SENOKOT) TAB PO SCH (22:33)
[2023-04-01] MEDS: DOCUSATE SODIUM 100 MG (COLACE) CAP PO SCH (22:33)
[2023-04-02] VITALS (11 sets, daily range): BP systolic 107–151; BP diastolic 58–97
[2023-04-02] MEDS ORDERED: THIAMINE 100 MG/ML 2 ML (VITAMIN B-1) VIAL ONE (05:39)
--- NOTE | 2023-04-02 05:49 | Short Stay Summary ---
History of Present Illness History of Present Illness Reason for visit/HPI Chief complaint: Neurological deficit suspicious for CVA HPI: This is a 72-year-old male who presented to the ER with multiple neurolog ical deficits but reported that this all started about 3 days ago. He was assessed to be high risk for stroke so neurology stroke center was contacted and they recommended MRI with aspirin and statin therapy. Apparently around 1984 he underwent an MRI and the physician who evaluated him many years ago told him that he could be at risk for multiple sclerosis. He had no issues until recently when he presented with strokelike symptoms that had improved so he underwent work-up from neurology from Dr. Nobles at [facility] [place] and was set up for repeat MRI and multiple lab evaluation to assess whether or not the changes to his imaging scan prompted another type of diagnostic pathway. He remained stable overnight and although he was having some difficulty walking and fairly weak he was not having any type of dysphagia but he did report numbness around his mouth. Lipid profile was reviewed. Home meds restarted. MRI with and without IV contrast revealed significant and multiple abnormalities consistent with either an acute demyelination process, infectious process or lymphoma. I spoke with Dr. Nobles again and he agreed he needed neurology and other specialties. [facility] was notified and hospitalist Dr. Boogie accepted the patient. Date of Admission Apr 01, 2023 at 19:49 Date of Discharge 04/02/2023 Time Seen by Provider: 11:00 Attending Physician Farooq Gasca MD Admitting Physician Admitting Physician: Ladi Whatley DO Attending Physician: Ladi Whatley DO Consult Allergies and Home Medications Allergies Coded Allergies: Penicillins (Verified Allergy, Mild, HIVES, 12/17/17) Patient Home Medication List Home Medication List Reviewed: Yes Amlodipine Besylate (Amlodipine Besylate) 5 Mg Tablet, 5 MG PO DAILY, (Reported) Entered as Reported by: BROOKS BOSWELL on 04/02/23 103 Last Action: Continued Aspirin (Aspirin EC) 81 Mg Tablet., 81 MG PO DAILY, (Reported) Entered as Reported by: BROOKS BOSWELL on 04/02/23 103 Last Action: Held Atorvastatin Calcium (Atorvastatin Calcium) 80 Mg Tablet, 80 MG PO HS, (Reported) Entered as Reported by: BROOKS BOSWELL on 04/02/23 103 Last Action: Continued Cetirizine HCl (Cetirizine HCl) 10 Mg Tablet, 10 MG PO DAILY PRN for ALLERGY SYMPTOMS, (Reported) Entered as Reported by: BROOKS BOSWELL on 04/02/23 1030 Last Action: Converted Losartan Potassium (Losartan Potassium) 100 Mg Tablet, 100 MG PO DAILY, (Reported) Entered as Reported by: JAYLA ANGEL on 12/17/17 1009 Last Action: Continued Discontinued Medications Aspirin (Aspirin) 81 Mg Tab.chew, 81 MG PO DAILY Discontinued Reason: No Longer Taking Prescribed by: SUJATA CAMPBELL on 01/21/23 0916 Last Action: Discontinued Atorvastatin Calcium (Atorvastatin Calcium) 80 Mg Tablet, 80 MG PO DAILY Discontinued Reason: No Longer Taking Prescribed by: SUJATA CAMPBELL on 01/21/23 1253 Last Action: Discontinued Clopidogrel Bisulfate (Clopidogrel) 75 Mg Tablet, 75 MG PO DAILY Discontinued Reason: No Longer Taking Prescribed by: SUJATA CAMPBELL on 01/21/23 1253 Last Action: Discontinued Nicotine (Nicotine Patch) 14 Mg/24 Hour Patch.td24, 14 MG TD DAILY Discontinued Reason: No Longer Taking Prescribed by: SUJATA CAMPBELL on 01/21/23 1254 Last Action: Discontinued Past Wqooaje-Jvcgwl-Cuvzsn Hx Patient Social History Marrital Status: Employed/Student: employed Smoking Status: Former Smoker Recent Hopitalizations: No Alcohol Use?: Yes Immunizations Up To Date Date of Influenza Vaccine: Jul 21, 2022 Seasonal Allergies Seasonal Allergies: No Surgeries Yes (HERNIA) Respiratory No Currently Using CPAP: No Currently Using BIPAP: No Cardiovascular Yes Hypertension Neurological Yes Stroke Reproductive System Hx Reproductive Disorders: No Sexually Transmitted Disease: No HIV/AIDS: No Genitourinary No Gastrointestinal Yes (INGUINAL HERNIA) Musculoskeletal No Endocrine History of Endocrine Disorders: No HEENT History of HEENT Disorders: No Loss of Vision: Bilateral Hearing Impairment: Hard of Hearing, Bilateral Hearing Aide Cancer Yes Prostate Did You Recieve Any Treatments: Yes Psychosocial History of Psychiatric Problem: No Integumentary History of Skin or Integumenta: No Blood Transfusions History of Blood Disorders: No Adverse Reaction to a Blood Tr: No (N/A) Review of Systems Constitutional: see HPI, dizziness, malaise, weakness EENTM: no symptoms reported Respiratory: no symptoms reported Cardiovascular: no symptoms reported Gastrointestinal: no symptoms reported Genitourinary: no symptoms reported Musculoskeletal: back pain, joint pain Psychiatric/Neurological: Numbness, Paresthesia, Tingling, Tremors, Weakness All Other Systems Reviewed Negative Unless Noted: Yes Physical Exam Vital Signs Vital Signs - First Documented 04/01/23 04/01/23 11:33 19:49 Temp 35.7 Pulse 75 Resp 18 B/P (MAP) 138/64 (88) Pulse Ox 98 O2 Delivery Room Air Capillary Refill : Less Than 3 Seconds Height, Weight, BMI Height: 5'6.00" Weight: 117lbs. 0.0oz. [id number]; 18.57 BMI Method: General Appearance: No Apparent Distress, WD/WN, Chronically ill Eyes: Bilateral Eye Normal Inspection, Bilateral Eye PERRL, Bilateral Eye EOMI HEENT: PERRL/EOMI, Normal ENT Inspection, Pharynx Normal Neck: Full Range of Motion, Normal Inspection, Non Tender, Supple, Carotid Bruit Respiratory: Chest Non Tender, Lungs Clear, Normal Breath Sounds, No Accessory Muscle Use, No Respiratory Distress Cardiovascular: Regular Rate, Rhythm, No Edema, No Gallop, No JVD, No Murmur, Normal Peripheral Pulses Gastrointestinal: Normal Bowel Sounds, No Organomegaly, No Pulsatile Mass, Non Tender, Soft Back: Normal Inspection, No CVA Tenderness, No Vertebral Tenderness Extremity: Normal Capillary Refill, Normal Inspection, Normal Range of Motion, Non Tender, No Calf Tenderness, No Pedal Edema Neurologic/Psychiatric: Alert, Oriented x3, Normal Mood/Affect, Abnormal Gait, Motor Weakness (Generalized all extremities), Sensory Deficit ( perioral) Skin: Normal Color, Warm/Dry Lymphatic: No Adenopathy Clinical Quality Measures Admission Status Admission Status: Observation Smoking Cessation Counseling: Counseling-Symptomatic: 3-10 Minutes Discussed Options Including: Nicotine Patch Short Stay Diagnosis Discharge Diagnosis-Short Stay Admission Diagnosis: Neurological deficits suspicious for CVA Hypertension Hyperlipidemia Final Discharge Diagnosis: Neurological deficits with MRI revealing acute demyelination process versus lymphoma versus infectious process Hypertension Hyperlipidemia Conclusion Labs Laboratory Tests 04/01/23 11:45: White Blood Count 9.0, Red Blood Count 3.88L, Hemoglobin 11.8L, Hematocrit 35L, Mean Corpuscular Volume 91, Mean Corpuscular Hemoglobin 30, Mean Corpuscular Hemoglobin Concent 34, Red Cell Distribution Width 12.8, Platelet Count 314, Mean Platelet Volume 9.8, Immature Granulocyte % (Auto) 0, Neutrophils (%) (Auto) 48, Lymphocytes (%) (Auto) 36, Monocytes (%) (Auto) 11, Eosinophils (%) (Auto) 5, Basophils (%) (Auto) 1, Neutrophils # (Auto) 4.3, Lymphocytes # (Auto) 3.2, Monocytes # (Auto) 1.0, Eosinophils # (Auto) 0.5H, Basophils # (Auto) 0.1, Immature Granulocyte # (Auto) 0.0, Erythrocyte Sedimentation Rate 11, Sodium Level 139, Potassium Level 4.4, Chloride Level 107, Carbon Dioxide Level 23, Anion Gap 9, Blood Urea Nitrogen 12, Creatinine 0.74, Estimat Glomerular Filtration Rate 97, BUN/Creatinine Ratio 16, Glucose Level 87, Calcium Level 9.3, Corrected Calcium 9.2, Magnesium Level 2.2, Total Bilirubin 0.4, Aspartate Amino Transf (AST/SGOT) 25, Alanine Aminotransferase (ALT/SGPT) 32, Alkaline Phosphatase 77, C-Reactive Protein High Sensitivity 0.07, Total Protein 6.6, Albumin 4.1, TSH [place] Testing 0.50, Serum Alcohol < 10 04/01/23 12:19: Urine Color YELLOW, Urine Clarity CLEAR, Urine pH 6.5, Urine Specific [place] <=1.005, Urine Protein NEGATIVE, Urine Glucose (UA) NEGATIVE, Urine Ketones NEGATIVE, Urine Nitrite NEGATIVE, Urine Bilirubin NEGATIVE, Urine Urobilinogen 0.2, Urine Leukocyte Esterase NEGATIVE, Urine RBC (Auto) NEGATIVE, Urine RBC NONE, Urine WBC NONE, Urine Crystals NONE, Urine Bacteria NEGATIVE, Urine Casts NONE, Urine Mucus NEGATIVE, Urine Culture Indicated NO 04/01/23 12:58: Blood Gas Puncture Site LEFT RADIAL, Blood Gas Patient Temperature 36.2, Arterial Blood pH 7.45H, Arterial Blood Partial Pressure CO2 35, Arterial Blood Partial Pressure O2 96H, Arterial Blood HCO3 24, Arterial Blood Total CO2 25.1, Arterial Blood Oxygen Saturation 98, Arterial Blood Base Excess 0.2, Percy Test POSITIVE, Blood Gas Ventilator Setting NO, Blood Gas Inspired Oxygen N/A 04/02/23 05:11: Conclusion/Plan Transfer to [facility] for neurology infectious disease and other specialties not available here LADI WHATLEY DO Apr 02, 2023 05:49
[2023-04-02 05:51] LABS: BASOPHILS # (AUTO) 0.1 10^3/uL (0.0-0.1); BASOPHILS % (AUTO) 1 % (0-10); EOSINOPHILS # (AUTO) 0.6 10^3/uL (0.0-0.3); EOSINOPHILS % (AUTO) 8 % (0-10); HEMATOCRIT 33 % (40-54); LYMPHOCYTES % (AUTO) 37 % (12-44); MEAN CORPUSCULAR HEMOGLOBIN 30 pg (25-34); MEAN CORPUSCULAR HGB CONC 34 g/dL (32-36); MEAN CORPUSCULAR VOLUME 90 fL (80-99); MONOCYTES # (AUTO) 0.7 10^3/uL (0.0-1.0); MONOCYTES % (AUTO) 9 % (0-12); NEUTROPHILS # (AUTO) 3.7 10^3/uL (1.8-7.8); NEUTROPHILS % (AUTO) 46 % (42-75); PLATELET COUNT 274 10^3/uL (130-400); WHITE BLOOD COUNT 8.1 10^3/uL (4.3-11.0)
[2023-04-02] MEDS ORDERED: THIAMINE INJECTION 100 MG in NS (IVPB) 50 ML IV SCH ×2 (06:00→14:00)
[2023-04-02] MEDS ORDERED: THIAMINE INJECTION 500 MG in NS (IVPB) 50 ML IV SCH (06:00)
[2023-04-02 06:04] LABS: ALBUMIN 3.5 GM/DL (3.2-4.5); BILIRUBIN,TOTAL 0.3 MG/DL (0.1-1.0); CALCIUM 8.8 MG/DL (8.5-10.1); CREATININE SERUM 0.74 MG/DL (0.60-1.30); POTASSIUM 4.4 MMOL/L (3.6-5.0); TOTAL PROTEIN 5.7 GM/DL (6.4-8.2)
[2023-04-02] MEDS ORDERED: GADOTERATE 0.5 MMOL/ML (CLARISCAN) 15 ML VIAL IV ONE (08:00)
[2023-04-02] MEDS ORDERED: ASPIRIN 325 MG (5 GR) TABLET PO SCH (09:00)
[2023-04-02] MEDS ORDERED: THIAMINE INJECTION 500 MG in NS (IVPB) 50 ML IV ONE (09:00)
[2023-04-02] MEDS: SENNOSIDES 8.6 MG (SENOKOT) TAB PO SCH (09:06)
[2023-04-02] MEDS: DOCUSATE SODIUM 100 MG (COLACE) CAP PO SCH (09:06)
--- NOTE | 2023-04-02 09:32 | Occupational Therapy Eval ---
OT Evaluation-General/PLF Medical Diagnosis Admission Date Apr 01, 2023 at 19:49 Medical Diagnosis: CVA Onset Date: Apr 01, 2023 Therapy Diagnosis Therapy Diagnosis: general weakenss Height/Weight Height (Feet): 5 Height (Inches): 6.00 Weight (Pounds): 117 Weight (Ounces): 0.0 Precautions Precautions/Isolations: Standard Precautions Weight Bear Status Weight Bearing Restriction: Full Weight Bearing Referral Physician: CHACORTA Referral Reason: Self Care, Evaluation/Treatment, Strengthening/ROM Medical History Pertinent Medical History: HTN, Prostate CA, Smoking Additional Medical History 72-year-old gentleman presents to the emergency room via private vehicle with concerns about left-sided facial numbness, difficulty walking, and numbness and weakness of the left extremities. He is normally able to ambulate independently with a cane. He complained of some blurry vision previously in the right eye and now in the left eye. At OT evaluaiton vision is resolved Family notes he was developing symptoms already on Friday, March 29, about 4 days ago. He has not had his normal function since then. Patient has history of stroke in January. He had follow-up with his primary care provider and had further imaging studies including MRI on March 07. Abnormal findings on the MRI studies from January and March prompted referral to neurology. He has been seen by Dr. Nobles at [facility]. Further work-up has been recommended including MRI of the brain with and without contrast. He has outpatient labs pending. He had his consultation with Dr. Nobles last week. Patient also receives treatment for prostate cancer including leuprolide androgen deprivation therapy (ADT). Further treatment with radiation is anticipated in the near future. Dr. Gasca is his primary care provider. Patient has outpatient PT/ST twice weekly at Reviewed History: Yes Social History Home: Single Level Current Living Status: Spouse Entry Into Home: Stairs With Railing Steps Into Home: 3 Steps Inside Home: 0 ADL-Prior Level of Function SCALE: Activities may be completed with or without assistive devices. 7-Irisuvfwdk-afityhz completes the activity by him/herself with no assistance from a helper. 5-Set-up or Clean-up Assistance-helper sets up or cleans up; patient completes activity. [place] assists only prior to or following the activity. 4-Supervision or Touching Assistance-helper provides verbal cues and/or touching/steadying and/or contact guard assistance as patient completes ac tivity. Assistance may be provided throughout the activity or intermittently. 3-Partial/Moderate Assistance-helper does LESS THAN HALF the effort. [place] lifts, holds or supports trunk or limbs, but provides less than half the effort. 2-Substantial/Maximal Assistance-helper does MORE THAN HALF the effort. [place] lifts or holds trunk or limbs and provides more than half the effort. 5-Zklpawncs-cnpokk does ALL the effort. Patient does none of the effort to complete the activity. Or, the assistance of 2 or more helpers is required for the patient to complete the activity. If activity was not attempted, code reason: 7-Patient Refused. 9-Not Applicable-not attempted and the patient did not perform the activity before the current illness, exacerbation or injury. 10-Not Attempted due to Environmental Limitations-(lack of equipment, weather restraints, etc.). 88-Not Attempted due to Medical Conditions or Safety Concerns. Self Care: Independent Functional Cognition: Independent DME/Equipment: Bath Chair, Grab Bars, Shower, Tall Toilet DME/Equipment Comments cane Drive Self: Yes (drove on Friday) OT Current Status Subjective Agreeable to OT evaluation Pain Numeric Pain Scale: 0-No Pain Mental Status/Objective Patient Orientation: Person, Place, Time, Situation Had outpatient appointment yesterday but canceled Attachments: IV, Telemetry Current Glasses/Contacts: Yes Hearing Aids: Yes Dentures/Partials: Yes Hand Dominance: Right Upper Extremity ROM BUE ROM WFLS Upper Extremity Coordination INTACT Upper Extremity Sensation INTACT Upper Extremity Strength Thin and frail in appearance, MMT BUE eaqual 4/5 grossly, 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 ADL-Treatment Eating (QC): 6 Oral Hygiene (QC): 6 (in sitting) Shower/Bathe Self (QC): 7 (declined, emiletn reports he showerd the day before he came in ) Upper Body Dressing (QC): 5 (d/t lines) Lower Body Dressing (QC): 5 (patietn reports he dressd himself to come to hospital) On/Off Footwear (QC): 6 Toileting Hygiene (QC): 7 (declined need) Patent and family report patient ambulates better wtih shoes on than only slipper socks, house slippers and slide on shoes present Education OT Patient Education: Home exercise program (review of PT HEP), Progress toward Goal/Update tx plan, Purpose of tx/functional activities, Reviewed precautions, Rehab process, Safety issues, Transfer techniques Teaching Recipient: Patient, Family Teaching Methods: Demonstration, Discussion Response to Teaching: Return Demonstration OT Long-Term Goals Catcher Helper Goals 1=Demonstrate adherence to instructed precautions during ADL tasks. 2=Patient will verbalize/demonstrate understanding of assistive devices/modifications for ADL. 3=Patient will improve strength/tolerance for activity to enable patient to perform ADL's. OT Education/Plan Problem List/Assessment Assessment: No Skilled OT Needs ID'd Discharge Recommendations Plan/Recommendations: Discontinue OT Therapy Discharge Recommendati: Home & Family Treatment Plan/Plan of Care Treatment,Training & Education: Yes Patient would benefit from OT for education, treatment and training to promote independence in ADL's, mobility, safety and/or upper extremity function for ADL's. Plan of Care: OTHER (EVAL ONLY) Treatment Duration: Apr 02, 2023 Frequency: 1 time per week Estimated Hrs Per Day: .25 hour per day Agreement: Yes Rehab Potential: Good Time Start Time: 09:20 Stop Time: 09:39 DATE: Apr 02, 2023 Total Time Billed (hr/min): 19 Billed Treatment Time EVL 19 min MERARY ERICKSON OT Apr 02, 2023 09:32
--- NOTE | 2023-04-02 09:37 | Diagnostic Imaging Report ---
PROCEDURE: MR imaging of the brain with and without contrast. TECHNIQUE: Multiplanar, multisequence MR imaging of the brain was performed with and without contrast. INDICATION: Neurologic deficit. Stroke. COMPARISON: MRI brain without contrast 03/07/2023. CTA head and neck 04/01/2023. FINDINGS: Again seen are extensive T2 hyperintensities in the supratentorial white matter, most greatly affecting the periventricular parietal lobes. Many of these lesions are oriented perpendicularly to the lateral ventricles and are suspicious for a demyelinating process. There has been interval progression of the ringlike restricted water diffusion and T2 hyperintensity in the white matter of the bilateral parietal lobes, posterior right frontal lobe. There is also a new lesion in the left cerebellar peduncle measuring 1.1 cm. A ring-enhancing lesion in the posterior right frontal lobe previously measured 0.7 cm, now measuring 0.9 cm. There is partial peripheral enhancement of several of these lesions best demonstrated on the sagittal postcontrast sequence, the sequence with the most delay. No hemosiderin deposition or evidence of intracranial hemorrhage. Normal morphology of the major midline structures, sella, posterior fossa and cerebellar pontine angle. Normal intracranial flow voids. No hydrocephalus or extra-axial fluid collections. The orbits are unremarkable. Mild mucosal thickening in the ethmoid and left maxillary sinuses. The mastoids are clear. Normal bone marrow signal. IMPRESSION: Interval progression of abnormal white matter T2 signal and restricted water diffusion in the bilateral parietal lobes, posterior right frontal lobe and a new lesion in the left middle cerebellar peduncle. These lesions demonstrate incomplete peripheral enhancement. Given the morphology, distribution and background T2 hyperintensities, findings are most compatible with an active demyelinating process. An infectious process is not entirely excluded. Lymphoma is also considered unlikely given the incomplete enhancement. If not already performed, CSF studies may be helpful for further evaluation. Dictated by: Dictated on workstation # [id number]
[2023-04-02] MEDS ORDERED: ATOR80TA76 PO (10:30)
[2023-04-02] MEDS ORDERED: AMLO-250 PO (10:30)
[2023-04-02] MEDS ORDERED: CETI10TA17 PO (10:30)
[2023-04-02] MEDS ORDERED: ASPI-1238 PO (10:30)
[2023-04-02] MEDS ORDERED: NON-FORMULARY MEDICATION 1 EA EA (Cetirizine HCl 10 MG) PO PRN (11:45)
--- NOTE | 2023-04-02 11:57 | Physical Therapy Progress Note ---
Therapy Progress Note Family requests hold at this time as patient is anticipating D/C today. Will attempt again after lunch if patient is still admitted. AVEL MANDUJANO PT Apr 02, 2023 11:57
[2023-04-02] MEDS ORDERED: LORATADINE (CLARITIN) 10 MG TAB PO PRN (12:00)
[2023-04-02] MEDS ORDERED: PATIENT MAY USE OWN MEDS, ALL MC SCH (12:15)
[2023-04-02] MEDS ORDERED: amLODIPine 5 MG (NORVASC) TAB PO SCH (13:15)
[2023-04-02] MEDS ORDERED: LOSARTAN 100 MG (COZAAR) TABLET PO SCH (13:15)
--- NOTE | 2023-04-02 15:21 | Physical Therapy Evaluation ---
PT Evaluation-General Medical Diagnosis Admission Date Apr 01, 2023 at 19:49 Medical Diagnosis: CVA Onset Date: Apr 01, 2023 Therapy Diagnosis Therapy Diagnosis: Gait deficit, strength deficit Height/Weight Height (Feet): 5 Height (Inches): 6.00 Weight (Pounds): 117 Weight (Ounces): 0.0 Precautions Precautions/Isolations: Fall Prevention (-), Standard Precautions Weight Bear Status Right Lower Extremity: Right Full Weight Bearing Left Lower Extremity: Left Full Weight Bearing Referral Physician: CHACORTA Reason for Referral: Evaluation/Treatment Medical History Pertinent Medical History: HTN, Prostate CA, Smoking Reviewed History: Yes Social History Home: Single Level Current Living Status: Spouse Entry Into Home: Stairs With Railing PT Steps Into Home: 3 PT Steps Inside Home: 0 Prior Prior Level of Function SCALE: Activities may be completed with or without assistive devices. 8-Oqjzayczcy-xtzqxlv completes the activity by him/herself with no assistance from a helper. 5-Set-up or Clean-up Assistance-helper sets up or cleans up; patient completes activity. Rice assists only prior to or following the activity. 4-Supervision or Touching Assistance-helper provides verbal cues and/or touching/steadying and/or contact guard assistance as patient completes activity. Assistance may be provided throughout the activity or intermittently. 3-Partial/Moderate Assistance-helper does LESS THAN HALF the effort. Rice lifts, holds or supports trunk or limbs, but provides less than half the effort. 2-Substantial/Maximal Assistance-helper does MORE THAN HALF the effort. Rice lifts or holds trunk or limbs and provides more than half the effort. 8-Bboesihnn-bjiywc does ALL the effort. Patient does none of the effort to complete the activity. Or, the assistance of 2 or more helpers is required for the patient to complete the activity. If activity was not attempted, code reason: 7-Patient Refused. 9-Not Applicable-not attempted and the patient did not perform the activity before the current illness, exacerbation or injury. 10-Not Attempted due to Environmental Limitations-(lack of equipment, weather restraints, etc.). 88-Not Attempted due to Medical Conditions or Safety Concerns. Bed Mobility: 6 Transfers (B,C,W/C): 6 Gait: 6 Stairs: 6 Indoor Mobility (Ambulation): Independent Stairs: Independent Prior Device Use: Cane PT Evaluation-Current Subjective Patient lying supine in bed upon PT arrival, agreeable to treatment. Patient rates pain at 0/10 currently. Objective Patient Orientation: Person, Place ROM/Strength ROM Lower Extremities WFLs BLEs all planes Strength Lower Extremities 3+/5 BLEs all planes Sensory Vision: Wears Glasses Hearing: Functional Hand Dominance: Right Sensation Right Lower Extremit: Intact Sensation Left Lower Extremity: Intact Transfers Roll Left to Right (QC): 4 Sit to Lying (QC): 4 Lying to Sitting/Side of Bed(Q: 4 Sit to Stand (QC): 4 Chair/Omo-if-Cyazn Xfer(QC): 4 Toilet Transfer (QC): 4 Gait Does the Patient Walk?: Yes Mode of Locomotion: Walk Anticipated Mode of Locomotion: Walk Walk 10 feet (QC): 3 Walk 50 ft with 2 Turns(QC): 3 Distance: 120' Gait Assistive Device: Cane Single Point Balance Sitting Static: Good Sitting Dynamic: Good Standing Static: Fair Standing Dynamic: Poor Assessment/Needs Patient tolerates treatment fair. He is moderately unsteady upon initially standing from bed, but is able to self correct. Patient performs all bed mobility and transfers with SBA. Patient ambulates to the BR, the 120 feet with cane, with CGA and verbal cues for safety, progression, posture and conservation of energy. Patients reports the patient should be going to for neurology, but they are arranging transportation. Patient in bed post treatment with all needs met, nursing notified, call light in reach and in the room. Rehab Potential: Fair PT Resource Room Special Education Teacher Goals Resource Room Special Education Teacher Goals PT Custodial Goals Time Frame: May 03, 2023 Roll Left & Right (QC): 6 Sit to Lying (QC): 6 Lying-Sitting on Side/Bed(QC): 6 Sit to Stand (QC): 6 Chair/Gez-ce-Izmfo Xfer(QC): 6 Toilet Transfer (QC): 6 Does the Patient Walk: Yes Walk 10 feet (QC): 6 Walk 50ft with 2 Turns (QC): 6 Walk 150 ft (QC): 4 1 Step (curb) (QC): 4 4 Steps (QC): 4 PT Plan Problem List Problem List: Activity Tolerance, Functional Strength, Safety, Balance, Gait, Transfer, Bed Mobility, ROM Treatment/Plan Treatment Plan: Continue Plan of Care Treatment Plan: Bed Mobility, Education, Functional Activity Dayanna, Functional Strength, Group Therapy, Gait, Safety, Therapeutic Exercise, Transfers Treatment Duration: May 03, 2023 Frequency: 6 times per week Estimated Hrs Per Day: .25 hour per day Safety Risks/Education Patient Education: Gait Training, Transfer Techniques Teaching Recipient: Patient Teaching Methods: Demonstration, Discussion Response to Teaching: Verbalize Understanding, Return Demonstration Time Time In: 1500 Time Out: 1515 DATE: Apr 02, 2023 Total Billed Treatment Time: 15 Total Billed Treatment Visit, AVEL JETER PT Apr 02, 2023 15:21
[2023-04-03] MEDS ORDERED: LOSARTAN 100 MG (COZAAR) TABLET PO SCH (09:00)
[2023-04-03] MEDS ORDERED: amLODIPine 5 MG (NORVASC) TAB PO SCH (09:00)
== END 2023-04-02 17:34 | disposition short-term general hospital (02) ==
LOC: EDUNIT# 11:31 → ER 11:32 → INTOOBSV 19:49 → UNDOADMOB 19:49 → CSD 19:49 → UNDODISOB 04-02 17:34
PROVIDERS: ADMIT Internal Medicine; ATTEND Internal Medicine
DX: R29.818 Other symptoms and signs involving the nervous system (principal); I10 Essential (primary) hypertension; E78.5 Hyperlipidemia, unspecified; R27.0 Ataxia, unspecified; R53.1 Weakness; Z87.891 Personal history of nicotine dependence
CPT/HCPCS: 70450; 70496; 70498; 70553; 71045; 80053 ×2; 80061; 81000; 82805; 83735; 84443; 85025 ×2; 85652; 86141; 93005; 94664; 96366; 96372; 96376; 97162; 97165; 99285; G0378; G0480; 36415; 80320

== ENCOUNTER 2023-04-11 08:51 | Outpatient (RCR) | payer MEDICARE ==
[~2023-04-11 08:51] MED LIST changes: +ASPI-1238 PO; +CETI10TA17 PO; +LEUPROLIDE 22.5 MG SYRINGE (ELIGARD) SQ SCH
== END 2023-05-05 | disposition home or self-care (01) ==
LOC: ONC 08:51
PROVIDERS: ATTEND Internal Medicine Hematology & Oncology
DX: Z51.11 Encounter for antineoplastic chemotherapy (principal); C61 Malignant neoplasm of prostate; I10 Essential (primary) hypertension
CPT/HCPCS: 96402

== ENCOUNTER 2023-05-02 08:46 | Outpatient (RCR) | payer MEDICARE ==
[~2023-05-02 08:46] MED LIST changes: -LEUPROLIDE 22.5 MG SYRINGE (ELIGARD) SQ SCH
== END 2023-05-05 | disposition home or self-care (01) ==
PROVIDERS: ATTEND Family Medicine
DX: C61 Malignant neoplasm of prostate (principal); Z86.73 Personal history of transient ischemic attack (TIA), and cerebral infarction without residual deficits; G31.84 Mild cognitive impairment of uncertain or unknown etiology

== ENCOUNTER → 2023-06-05 | Outpatient (RCR) | payer MEDICARE | END | disposition home or self-care (01) | PROVIDERS: ATTEND Family Medicine | DX: C61 Malignant neoplasm of prostate (principal); Z86.73 Personal history of transient ischemic attack (TIA), and cerebral infarction without residual deficits; G31.84 Mild cognitive impairment of uncertain or unknown etiology; R53.1 Weakness ==

== ENCOUNTER 2023-07-08 09:21 | Outpatient (RCR) | payer MEDICARE ==
[~2023-07-08 09:21] MED LIST changes: +LEUPROLIDE 22.5 MG SYRINGE (ELIGARD) SQ SCH
== END 2023-08-05 | disposition home or self-care (01) ==
LOC: ONC 09:21
PROVIDERS: ATTEND Internal Medicine Hematology & Oncology
DX: Z51.11 Encounter for antineoplastic chemotherapy (principal); C61 Malignant neoplasm of prostate; I10 Essential (primary) hypertension
CPT/HCPCS: 96402; G0463; 99214

== ENCOUNTER → 2023-08-04 | Outpatient (RCR) | payer MEDICARE ==
[~2023-08-04] MED LIST changes: -LEUPROLIDE 22.5 MG SYRINGE (ELIGARD) SQ SCH
== END | disposition home or self-care (01) ==
LOC: CR3 06-30 13:00
PROVIDERS: ATTEND Internal Medicine
DX: Z01.89 Encounter for other specified special examinations (principal)

== ENCOUNTER 2023-08-12 05:30 | Outpatient (CLI) | payer MEDICARE ==
[~2023-08-12] VITALS: Ht 167.7 cm; Wt 55.0 kg
[2023-08-13] MEDS ORDERED: NATA300V2 IV (14:44)
[2023-08-13] MEDS ORDERED: CIPR250T3 PO (14:44)
[2023-08-13] MEDS ORDERED: MULT-1136 PO (14:44)
== END 2023-08-13 15:05 | disposition home or self-care (01) ==
LOC: PREOP 05:30
PROVIDERS: ATTEND Specialist
DX: Z01.818 Encounter for other preprocedural examination (principal)

== ENCOUNTER 2023-08-19 07:05 | Day surgery (SDC) | payer MEDICARE ==
[~2023-08-19] VITALS: Ht 167.7 cm; Wt 55.0 kg
[2023-08-19] VITALS (11 sets, daily range): BP systolic 124–157; BP diastolic 63–94
[~2023-08-19 07:05] MED LIST changes: +CIPR250T3 PO; +MULT-1136 PO; +NATA300V2 IV
[2023-08-19] MEDS: LACTATED RINGERS 1,000 ML 1,000 ML IV PRN ×2 (08:44→10:24)
--- NOTE | 2023-08-19 08:55 | Progress Note-Pre Operative ---
Pre-Operative Progress Note Date of Available H&P: Aug 12, 2023 Date H&P Reviewed: Aug 19, 2023 Time H&P Reviewed: 08:54 History & Physical: H&P Reviewed, No changes noted Pre-Operative Diagnosis: Prostate cancer Michelle GORE MD Aug 19, 2023 08:54
[2023-08-19] MEDS ORDERED: ONDANSETRON INJECTION 4 MG/2 ML (SDV) ONE (09:04)
[2023-08-19] MEDS ORDERED: proPOfol INJECTION 200 MG/20 ML VIAL IV ONE (09:04)
[2023-08-19] MEDS ORDERED: LIDOCAINE PF 2% 5 ML VIAL ONE (09:04)
[2023-08-19] MEDS ORDERED: fentaNYL INJECTION 100 MCG/2 ML VIAL ONE (09:04)
--- NOTE | 2023-08-19 09:19 | Progress Note-Post Operative ---
Post-Operative Progess Note Surgeon (s)/Financial Services Education Consultant (s) Surgeon Michelle GORE MD Financial Services Education Consultant n/a Pre-Operative Diagnosis Prostate cancer Post-Operative Diagnosis same Post-Op Procedure Note Name of Procedure Performed: Transperineal placement of gold fiducial seed markers with transrectal ultrasound guidance. Transperineal injection of absorbable prostate-rectal spacer using the [employer] Adam system with transrectal ultrasound guidance Description & Findings Description and Findings: n/a Estimated Blood Loss minimal Packing none. Specimen(s) collected/removed None Michelle GORE MD Aug 19, 2023 09:18
[2023-08-19] MEDS ORDERED: dexAMETHasone INJ 10 MG/ML 1 ML VIAL ONE (09:24)
[2023-08-19] MEDS ORDERED: SEVOFLURANE (ULTANE) 15 ML INHAL SOLN ONE (09:24)
--- NOTE | 2023-08-19 09:46 | Anesthesia-General Post-Op ---
General Patient Condition Mental Status/LOC: Same as Preop Cardiovascular: Satisfactory Nausea/Vomiting: Absent Respiratory: Satisfactory Pain: Controlled Complications: Absent Post Op Complications Complications None Follow Up Care/Instructions Patient Instructions None needed. Anesthesia/Patient Condition Patient Condition Patient is doing well, no complaints, stable vital signs, no apparent adverse anesthesia problems. No complications reported per nursing. THEODORE DUNBAR CRNA Aug 19, 2023 09:46
[2023-08-19] MEDS ORDERED: fentaNYL INJECTION 100 MCG/2 ML VIAL IVP ONE (10:00)
[2023-08-19] MEDS ORDERED: ONDANSETRON INJECTION 4 MG/2 ML (SDV) IVP PRN (10:00)
== END 2023-08-19 11:52 | disposition home or self-care (01) ==
LOC: SDC 07:05
PROVIDERS: ATTEND Specialist
DX: C61 Malignant neoplasm of prostate (principal); Z87.891 Personal history of nicotine dependence
CPT/HCPCS: 55874; 55876; 87081; A4648; C1889

== ENCOUNTER → 2023-09-04 | Outpatient (RCR) | payer MEDICARE | END | disposition home or self-care (01) | LOC: ONC 08-20 09:48 | PROVIDERS: ATTEND Internal Medicine Hematology & Oncology | DX: Z51.0 Encounter for antineoplastic radiation therapy (principal); C61 Malignant neoplasm of prostate; I10 Essential (primary) hypertension | CPT/HCPCS: 77300; 77301; 77334; 77336; 77338; 77385 ==